=== PATIENT | male | born 1980 | race African-American/Black ===

== ENCOUNTER 2020-02-25 22:16 | Emergency (ER) | payer SELFPAY ==
[~2020-02-25] VITALS: Ht 172.7 cm; Wt 140.4 kg
[2020-02-25 22:58] LABS: BASO # 0.1 x10^3/uL (0.0-0.2); BASO % 1 % (0-3); EOS # 0.1 x10^3/uL (0.0-0.7); EOS % 1 % (0-3); HEMOGLOBIN 15.1 g/dL (13.0-17.5); LYMPH # 1.5 x10^3/uL (1.0-4.8); LYMPH % 18 % (24-48); MEAN CORPUSCULAR HEMOGLOBIN 26 pg (25-35); MEAN CORPUSCULAR HGB CONC 33 g/dL (31-37); MEAN CORPUSCULAR VOLUME 79 fL (79-100); MONO # 0.6 x10^3/uL (0.0-1.1); MONO % 7 % (0-9); NEUT # 6.2 x10^3/uL (1.8-7.7); NEUT % 73 % (31-73); PLATELET COUNT 245 x10^3/uL (140-400); RED BLOOD COUNT 5.83 x10^6/uL (4.30-5.70); RED CELL DISTRIBUTION WIDTH 17.2 % (11.5-14.5); WHITE BLOOD COUNT 8.5 x10^3/uL (4.0-11.0)
--- NOTE | 2020-02-25 23:05 | ED.ADGEN ---
General Adult EDM: Chief Complaint: CHEST PAIN HPI: HPI: Patient is a 39-year-old male who presents to the emergency room complaining of sudden onset substernal chest pressure with shortness of breath. Patient states that he was playing video games and suddenly had onset of pain that has progressively gotten worse. He states the pain is mildly better than it was prior to coming but he continues to have pain. He states that it feels like he cannot get a deep breath. Prior to this he was feeling normal. He has not had any recent cough, URI symptoms, fever, chills, sweats, abdominal pain, nausea, vomiting, diarrhea. There is no radiation of pain. He does not use any kind of substances. Review of Systems: Review of Systems: Complete ROS is negative unless otherwise documented in HPI Current Medications: Current Medications Medications (Trade) Dose Ordered Sig/[place] Start Time Stop Time Status Last Admin Dose Admin Info (CONTRAST GIVEN -- Rx MONITORING) 1 each PRN DAILY PRN 02/25/20 23:55 02/27/20 23:54 Iohexol (Omnipaque 350 Mg/ml) 100 ml 1X ONCE 02/25/20 23:55 02/25/20 23:56 DC 02/25/20 23:59 100 ML Sodium Chloride 1,000 ml @ 1,000 mls/hr 1X ONCE 02/26/20 01:00 02/26/20 01:59 02/26/20 01:00 1,000 MLS/HR Allergies: Allergies: Allergies Coded Allergies Type Severity Reaction Last Updated Verified No Known Drug Allergies 02/25/20 No Physical Exam: PE: General: Awake, alert, NAD. Well Nourished, well hydrated. Cooperative HEENT: Atraumatic, EOMI, PERRL, airway patent, moist oral mucosa Neck: Supple, trachea midline Respiratory: CTA bilaterally, normal effort, no wheezing/crackles CV: Tachycardic, no murmur, cap refill <2 GI: Soft, nondistended, nontender, no masses MSK: No obvious deformities Skin: Warm, dry, intact Neuro: A&O x3, speech NL, sensory and motor grossly intact, no focal deficits Psych: Normal affect, normal mood, not suicidal or homicidal Current Patient Data: Labs: Laboratory Tests Test 02/25/20 22:47 White Blood Count 8.5 x10^3/uL (4.0-11.0) Red Blood Count 5.83 x10^6/uL (4.30-5.70) H Hemoglobin 15.1 g/dL (13.0-17.5) Hematocrit 46.0 % (39.0-53.0) Mean Corpuscular Volume 79 fL (79-100) Mean Corpuscular Hemoglobin 26 pg (25-35) Mean Corpuscular Hemoglobin Concent 33 g/dL (31-37) Red Cell Distribution Width 17.2 % (11.5-14.5) H Platelet Count 245 x10^3/uL (140-400) Neutrophils (%) (Auto) 73 % (31-73) Lymphocytes (%) (Auto) 18 % (24-48) L Monocytes (%) (Auto) 7 % (0-9) Eosinophils (%) (Auto) 1 % (0-3) Basophils (%) (Auto) 1 % (0-3) Neutrophils # (Auto) 6.2 x10^3/uL (1.8-7.7) Lymphocytes # (Auto) 1.5 x10^3/uL (1.0-4.8) Monocytes # (Auto) 0.6 x10^3/uL (0.0-1.1) Eosinophils # (Auto) 0.1 x10^3/uL (0.0-0.7) Basophils # (Auto) 0.1 x10^3/uL (0.0-0.2) D-Dimer (Winnie) 0.51 ug/mlFEU (0.00-0.50) H Sodium Level 139 mmol/L (136-145) Potassium Level 4.1 mmol/L (3.5-5.1) Chloride Level 102 mmol/L (98-107) Carbon Dioxide Level 23 mmol/L (21-32) Anion Gap 14 (6-14) Blood Urea Nitrogen 15 mg/dL (8-26) Creatinine 1.2 mg/dL (0.7-1.3) Estimated GFR (Cockcroft-Gault) 66.7 BUN/Creatinine Ratio 13 (6-20) Glucose Level 152 mg/dL (70-99) H Calcium Level 8.5 mg/dL (8.5-10.1) Total Bilirubin 0.2 mg/dL (0.2-1.0) Aspartate Amino Transferase (AST) 31 U/L (15-37) Alanine Aminotransferase (ALT) 46 U/L (16-63) Alkaline Phosphatase 98 U/L (46-116) Lactate Dehydrogenase 243 U/L (85-227) H Creatine Kinase 213 U/L (39-308) Troponin I Quantitative < 0.017 ng/mL (0.000-0.055) C-Reactive Protein, Quantitative 11.3 mg/L (0-3.3) H KI-Pnu-B-Type Natriuretic Peptide 60 pg/mL (0-124) Total Protein 7.7 g/dL (6.4-8.2) Albumin 3.5 g/dL (3.4-5.0) Albumin/Globulin Ratio 0.8 (1.0-1.7) L Laboratory Tests 02/25/20 22:47 Laboratory Tests 02/25/20 22:47 Vital Signs: Vital Signs Date Time Temp Pulse Resp B/P (MAP) Pulse Ox O2 Delivery O2 Flow Rate FiO2 02/25/20 23:45 130 152/79 (103) 95 Room Air 02/25/20 22:16 98.6 22 98.6 EKG: EKG: [] Heart Score: Risk Factors: Risk Factors: DM, Current or recent (<one month) smoker, HTN, HLP, family histo ry of CAD, obesity. Risk Scores: Score 0 - 3: 2.5% MACE over next 6 weeks - Discharge Home Score 4 - 6: 20.3% MACE over next 6 weeks - Admit for Clinical Observation Score 7 - 10: 72.7% MACE over next 6 weeks - Early Invasive Strategies Radiology/Procedures: Radiology/Procedures: [] Course & Med Decision Making: Course & Med Decision Making Pertinent Labs and Imaging studies reviewed. (See chart for details) Patient is a 39-year-old male who presents to the emergency room complaining of sudden onset chest pain and shortness of breath. Patient is tachycardic upon evaluation. This raises concern for possible pulmonary embolism. Shortness of breath and chest pain work-up was ordered including CBC, CMP, troponin, D-dimer, EKG, chest x-ray. Work-up does show an elevated D-dimer. CT angio was done and was suboptimal. Patient is feeling better. He is not hypoxic. I have discussed his tachycardia with him and he states that this is not unusual. I discussed with him the options of being admitted to be evaluated for a possible VQ scan and pulmonology consult versus being discharged home with strict return precautions that if his chest pain or shortness of breath should recur he will return to the emergency room. We have discussed the suboptimal study. Patient would like to go home and come back if symptoms return. Patient's test results and vitals while in the ED were fully reviewed and discussed with the patient. Patient is stable and at this time does not need admission to the hospital. We have discussed strict return precautions and the importance of following up with their Primary Care Physician. Patient stated understanding and was given an opportunity to ask any questions. Patient is in agreement with plan. Alyce Disclaimer: Alyce Disclaimer: This electronic medical record was generated, in whole or in part, using a voice recognition dictation system. Departure Departure Impression: Primary Impression: Chest pain Additional Impression: Tachycardia Disposition: 01 DC HOME SELF CARE/HOMELESS Condition: STABLE Patient Instructions: Chest Pain (Nonspecific) Problem Qualifiers TERRY YO MD Feb 25, 2020 23:05
[2020-02-25 23:07] LABS: CALCIUM 8.5 mg/dL (8.5-10.1); CREATININE 1.2 mg/dL (0.7-1.3); GFR 66.7; POTASSIUM 4.1 mmol/L (3.5-5.1)
[2020-02-25 23:13] LABS: ALBUMIN 3.5 g/dL (3.4-5.0); ALBUMIN/GLOBULIN RATIO 0.8 (1.0-1.7); C-REACTIVE PROTEIN 11.3 mg/L (0-3.3); TOTAL BILIRUBIN 0.2 mg/dL (0.2-1.0); TOTAL PROTEIN 7.7 g/dL (6.4-8.2)
[2020-02-25] MEDS ORDERED: IOHEXOL 350 MG/ML 100 ML VIAL. IV ONE (23:55)
[2020-02-25] MEDS ORDERED: CONTRAST GIVEN. MC PRN (23:55)
--- NOTE | 2020-02-26 00:33 | RAD ---
EXAM: AP View of the chest DATE: 02/25/2020 10:34 PM INDICATION: Reason: cough, covid? / Spl. Instructions: / History: COMPARISON: No Prior FINDINGS: The heart is not enlarged. Mediastinal and hilar contours are normal. No focal parenchymal airspace opacity. No pleural effusion or pneumothorax. IMPRESSION: 1. No radiographic evidence for acute cardiopulmonary process. Electronically signed by: Bertrand Barron MD (02/26/2020 12:27 AM) TREV
--- NOTE | 2020-02-26 00:40 | RAD ---
EXAM: CT chest with contrast - pulmonary embolus protocol CLINICAL HISTORY: chest pain, sob, tachycardia COMPARISON: None. TECHNIQUE: CT of the chest following the administration of intravenous contrast during the pulmonary arterial phase. Axial, coronal and sagittal reformatted images were generated including MIP images. ---PQRS compliance statement - One or more of the following individualized dose reduction techniques were utilized for this study: 1. Automated exposure control 2. Adjustment of the mA and/or kV according to patient size 3. Use of iterative reconstruction technique--- FINDINGS: CHEST: Diagnostic quality: Suboptimal. Pulmonary emboli: No obvious large central pulmonary embolus is seen. The pulmonary artery branches are not adequately assessed. Right heart strain: None Pulmonary arteries: Normal in caliber. Heart is not enlarged. No pericardial effusion. No pleural effusion or pneumothorax. A few mildly prominent mediastinal and hilar lymph nodes are seen, likely reactive. No axillary lymph adenopathy. No lobar consolidation. Focal groundglass opacities are seen in the anterolateral right middle lobe, left infrahilar region as well as dependently in the left lower lobe and right lower lobe. 4 mm left upper lobe lung nodule (series 3 image 52) is seen. 4 mm left upper lobe/lingular lung nodule (series 3 image 79) is seen. 4 mm peripheral right upper lobe lung nodule (series 3 image 76). Additional sm aller bilateral lung nodules are seen. Visualized Upper abdomen: Hepatic hypoattenuation likely fatty liver. Region of focal fatty sparing along the gallbladder fossa. Bones: No aggressive osseous lesion is seen. IMPRESSION: 1. Evaluation for pulmonary embolus is markedly limited. No obvious large central pulmonary embolus is seen. Pulmonary artery branches are not well assessed. 2. Vague groundglass opacities bilaterally, possibly atelectasis although developing atypical infect ious or inflammatory process is not excluded. Follow-up CT to resolution is recommended. CT can be pe rformed in 3-6 months. 3. Multiple lung nodules measure up to 4 mm. Per Fleischner Society guidelines for incidentally foun d solid nodules measuring less than 6 mm, no follow-up is necessary if patient is considered at low r isk for lung cancer. If patient is considered to be at high risk, such as with history of smoking, en CT follow-up in about 12 months can be considered. Electronically signed by: Bertrand Barron MD (02/26/2020 12:35 AM) TREV
[2020-02-26] MEDS ORDERED: IV NORMAL SALINE 1000ML BAG 1,000 ML IV ONE (01:00)
[2020-02-26 01:15] VITALS: BP 148/86
--- NOTE | 2020-02-26 11:50 | EKG ---
[facility] [address] [place] [address] Test Date: 2020-02-25 Test Time: 22:27:14 Pat Name: ROSALES PORTER Department: Room: Gender: M Carriage Dogger: : 1980 Requested By: TERRY YO Order Number: [id number] Reading MD: Measurements Intervals [place] Rate: 126 P: 103 MN: 140 QRS: -10 QRSD: 78 T: 26 QT: 300 QTc: 435 Interpretive Statements SINUS TACHYCARDIA LEFTWARD AXIS RVH WITH REPOLARIZATION ABNORMALITY QRS(T) CONTOUR ABNORMALITY CONSISTENT WITH ANTEROSEPTAL INFARCT AGE UNDETERMINED ABNORMAL ECG RI6.01 No previous ECG available for comparison
== END 2020-02-26 01:29 | disposition home or self-care (01) ==
LOC: ER 22:16
DX: R07.2 Precordial pain (principal); R00.0 Tachycardia, unspecified; R06.02 Shortness of breath
CPT/HCPCS: 36415; 71045; 71275; 80053; 82550; 83615; 83880; 84484; 85025; 85379; 86140; 93005; 96360; 99285; J7030; Q9967

== ENCOUNTER 2020-03-11 02:12 | Observation (INO) | payer SELFPAY ==
[~2020-03-11] VITALS: Ht 172.7 cm; Wt 142.5 kg
[2020-03-11] MEDS ORDERED: ASPIRIN CHEWABLE 81 MG TABLET. PO ONE (02:45)
[2020-03-11 02:53] LABS: BASO % 1 % (0-3); EOS # 0.2 x10^3/uL (0.0-0.7); EOS % 3 % (0-3); HEMATOCRIT 44.1 % (39.0-53.0); HEMOGLOBIN 14.5 g/dL (13.0-17.5); LYMPH # 1.8 x10^3/uL (1.0-4.8); LYMPH % 28 % (24-48); MEAN CORPUSCULAR HEMOGLOBIN 26 pg (25-35); MEAN CORPUSCULAR HGB CONC 33 g/dL (31-37); MEAN CORPUSCULAR VOLUME 79 fL (79-100); MONO # 0.8 x10^3/uL (0.0-1.1); MONO % 13 % (0-9); NEUT # 3.7 x10^3/uL (1.8-7.7); NEUT % 57 % (31-73); PLATELET COUNT 212 x10^3/uL (140-400); RED BLOOD COUNT 5.57 x10^6/uL (4.30-5.70); RED CELL DISTRIBUTION WIDTH 17.4 % (11.5-14.5); WHITE BLOOD COUNT 6.5 x10^3/uL (4.0-11.0)
[2020-03-11 03:02] LABS: CALCIUM 8.7 mg/dL (8.5-10.1); CREATININE 0.9 mg/dL (0.7-1.3); GFR 112.5; POTASSIUM 4.1 mmol/L (3.5-5.1)
[2020-03-11 03:08] LABS: ALBUMIN 3.4 g/dL (3.4-5.0); ALBUMIN/GLOBULIN RATIO 0.8 (1.0-1.7); MAGNESIUM 2.1 mg/dL (1.8-2.4); TOTAL BILIRUBIN 0.2 mg/dL (0.2-1.0); TOTAL PROTEIN 7.6 g/dL (6.4-8.2)
--- NOTE | 2020-03-11 03:28 | PHYS DOC ---
Past Medical History Past Medical History: Hypertension, Other Additional Past Medical Histor: SLEEP APNEA, "LUMP ON GROIN POSSIBLY CA" Past Surgical History: No Surgical History Smoking Status: Never Smoker Alcohol Use: None Adult General Chief Complaint Chief Complaint: CHEST PAIN-CARDIAC NATURE HPI HPI Patient is a 39 year old with a past medical history of hypertension not currently on medication presenting the emergency department complaining of onset of chest pain. Patient states he has been having intermittent left anterior chest pain over the last 2 weeks. States that over the last 4 hours has developed worsening sensation of left anterior chest pain but also noted tingling in his hands and feet. Denies any dizziness or lightheadedness. Denies any cough, fever, chills. Notes that he has a family history of a sister who had a myocardial infarction at the age of 40 Review of Systems Review of Systems Constitutional: Denies fever or chills [] Eyes: Denies change in visual acuity, redness, or eye pain [] HENT: Denies nasal congestion or sore throat [] Respiratory: Denies cough or shortness of breath [] Cardiovascular: No additional information not addressed in HPI [] GI: Denies abdominal pain, nausea, vomiting, bloody stools or diarrhea [] : Denies dysuria or hematuria [] Musculoskeletal: Denies back pain or joint pain [] Integument: Denies rash or skin lesions [] Neurologic: Denies headache, focal weakness or sensory changes [] Endocrine: Denies polyuria or polydipsia [] All other systems were reviewed and found to be within normal limits, except as documented in this note. Current Medications Current Medications Current Medications Medications (Trade) Dose Ordered Sig/[facility] Start Time Stop Time Status Last Admin Dose Admin Aspirin (Aspirin Chewable) 324 mg 1X ONCE 03/11/20 02:45 03/11/20 02:46 DC 03/11/20 03:09 324 MG Allergies Allergies Allergies Coded Allergies Type Severity Reaction Last Updated Verified No Known Drug Allergies 02/25/20 No Physical Exam Physical Exam Constitutional: Well developed, well nourished, no acute distress, non-toxic appearance. [] HENT: Normocephalic, atraumatic, bilateral external ears normal, oropharynx moist, no oral exudates, nose normal. [] Eyes: PERRLA, EOMI, conjunctiva normal, no discharge. [] Neck: Normal range of motion, no tenderness, supple, no stridor. [] Cardiovascular:Heart rate regular rhythm, no murmur [] Lungs & Thorax: Bilateral breath sounds clear to auscultation [] Abdomen: Bowel sounds normal, soft, no tenderness, no masses, no pulsatile masses. [] Skin: Warm, dry, no erythema, no rash. [] Back: No tenderness, no CVA tenderness. [] Extremities: No tenderness, no cyanosis, no clubbing, ROM intact, no edema. [] Neurologic: Alert and oriented X 3, normal motor function, normal sensory function, no focal deficits noted. [] Psychologic: Affect normal, judgement normal, mood normal. [] Current Patient Data Lab Values Laboratory Tests Test 03/11/20 02:35 White Blood Count 6.5 x10^3/uL (4.0-11.0) Red Blood Count 5.57 x10^6/uL (4.30-5.70) Hemoglobin 14.5 g/dL (13.0-17.5) Hematocrit 44.1 % (39.0-53.0) Mean Corpuscular Volume 79 fL (79-100) Mean Corpuscular Hemoglobin 26 pg (25-35) Mean Corpuscular Hemoglobin Concent 33 g/dL (31-37) Red Cell Distribution Width 17.4 % (11.5-14.5) H Platelet Count 212 x10^3/uL (140-400) Neutrophils (%) (Auto) 57 % (31-73) Lymphocytes (%) (Auto) 28 % (24-48) Monocytes (%) (Auto) 13 % (0-9) H Eosinophils (%) (Auto) 3 % (0-3) Basophils (%) (Auto) 1 % (0-3) Neutrophils # (Auto) 3.7 x10^3/uL (1.8-7.7) Lymphocytes # (Auto) 1.8 x10^3/uL (1.0-4.8) Monocytes # (Auto) 0.8 x10^3/uL (0.0-1.1) Eosinophils # (Auto) 0.2 x10^3/uL (0.0-0.7) Basophils # (Auto) 0.0 x10^3/uL (0.0-0.2) Sodium Level 140 mmol/L (136-145) Potassium Level 4.1 mmol/L (3.5-5.1) Chloride Level 103 mmol/L (98-107) Carbon Dioxide Level 29 mmol/L (21-32) Anion Gap 8 (6-14) Blood Urea Nitrogen 9 mg/dL (8-26) Creatinine 0.9 mg/dL (0.7-1.3) Estimated GFR (Cockcroft-Gault) 112.5 BUN/Creatinine Ratio 10 (6-20) Glucose Level 88 mg/dL (70-99) Calcium Level 8.7 mg/dL (8.5-10.1) Magnesium Level 2.1 mg/dL (1.8-2.4) Total Bilirubin 0.2 mg/dL (0.2-1.0) Aspartate Amino Transferase (AST) 20 U/L (15-37) Alanine Aminotransferase (ALT) 37 U/L (16-63) Alkaline Phosphatase 90 U/L (46-116) Troponin I Quantitative < 0.017 ng/mL (0.000-0.055) Total Protein 7.6 g/dL (6.4-8.2) Albumin 3.4 g/dL (3.4-5.0) Albumin/Globulin Ratio 0.8 (1.0-1.7) L Laboratory Tests 03/11/20 02:35 Laboratory Tests 03/11/20 02:35 EKG EKG [] Radiology/Procedures Radiology/Procedures [] Course & Med Decision Making Course & Med Decision Making Pertinent Labs and Imaging studies reviewed. (See chart for details) 39M presenting with new onset of left anterior chest pain in setting of hypertension which does raise concern for hypertensive emergency. Will obtain an ACS work-up and monitor for any changes. LAbs unremarkable. Because of family history and comorbidities will keep for observation. Dragon Disclaimer Dragon Disclaimer This electronic medical record was generated, in whole or in part, using a voice recognition dictation system. Departure Departure Impression: Primary Impression: Chest pain Disposition: 09 ADMITTED INPT THIS HOSP Condition: STABLE Referrals: NO PCP (PCP) RAUDEL ARIZMENDI MD Mar 11, 2020 03:28
--- NOTE | 2020-03-11 03:33 | RAD ---
XR CHEST 1V Clinical Indication: Reason: chest pain / Comparison: AP chest, February 25, 2020. Findings: The cardiomediastinal silhouette is normal. Lungs are clear. There is no pneumothorax. No pleural eff usion is appreciated. No acute bone abnormality. IMPRESSION: No acute cardiopulmonary process. Electronically signed by: Jus Winter MD (03/11/2020 3:31 AM) [facility]
[2020-03-11] MEDS ORDERED: ONDANSETRON PF 4 MG/2 ML VIAL. IV PRN (04:45)
--- NOTE | 2020-03-11 08:03 | PDOC1 ---
History and Physical Date of Admission Date of Admission DATE: 03/11/20 TIME: 08:00 Identification/Chief Complaint Chief Complaint Chest pain Source Source: Patient History of Present Illness History of Present Illness Patient is a 39-year-old obese -[place] male presents to the ER for evaluation of intermittent chest pain x1 week. He reports associated l ightheadedness and bilateral upper extremity numbness. He was seen in [facility] ER on 02/25/2020 for similar symptoms. He was given the option to be admitted for cardiac evaluation, per patient chose to be discharged instead. He returned to the ER last night due to recurrence of symptoms. Chest. EKG unremarkable for acute process. Due to significant risk factors of morbid obesity and family history of coronary artery disease, will admit patient for further medical management. Past Medical History Past Medical History GERD, obesity, hypertension Past Surgical History Past Surgical History: No pertinent history Family History Family History: Coronary Artery Disease Social History Smoke: No ALCOHOL: none Drugs: Marijuana Current Problem List Problem List Problems Medical Problems: (1) Chest pain Status: Acute Current Medications Current Medications Current Medications Aspirin (Aspirin Chewable) 324 mg 1X ONCE PO Last administered on 03/11/20at 03:09; Start 03/11/20 at 02:45; Stop 03/11/20 at 02:46; Status DC Ondansetron HCl (Zofran) 4 mg PRN Q8HRS PRN IV NAUSEA/VOMITING; Start 03/11/20 at 04:45; Stop 03/12/20 at 04:44 Allergies Allergies: Coded Allergies: No Known Drug Allergies (Unverified , 02/25/20) ROS Review of System GENERAL: No history of weight change, weakness or fevers. SKIN: No bruising, hair changes or rashes. EYES: No blurred, double or loss of vision. NOSE AND THROAT: No history of nosebleeds, hoarseness or sore throat. HEART: Denies chest pain, denies palpitations. LUNGS: Denies cough, hemoptysis, wheezing or shortness of breath. GASTROINTESTINAL: Denies nausea, vomiting, abdominal pain. GENITOURINARY: Denies dysuria, frequency, urgency, hematuria. NEUROLOGIC: Bilateral hand numbness. Denies tremor or weakness. PSYCHIATRIC: Denies anxiety, denies depression. ENDOCRINE: No history of heat or cold intolerance, polyuria or polydipsia. EXTREMITIES: Denies muscle weakness, joint pain, pain on walking or stiffness. Physical Exam Physical Exam General: Alert, Oriented X3, Cooperative, No acute distress. Morbidly obese. HEENT: PERRLA, EOMI Lungs: Decreased breath sounds. Normal air movement Heart: RRR, no murmurs Cardiovascular: S1, S2 Abdomen: Normal bowel sounds, Soft, No tenderness Extremities: No clubbing, No cyanosis Skin: No rashes, No significant lesion Neuro: Normal speech, Normal tone, Sensation intact Psych/Mental Status: Mental status NL, Mood NL Vitals Vitals Vital Signs Date Time Temp Pulse Resp B/P (MAP) Pulse Ox O2 Delivery O2 Flow Rate FiO2 03/11/20 06:17 76 18 173/92 (119) 97 Room Air 03/11/20 02:15 98.1 98.1 Labs Labs Laboratory Tests Test 03/11/20 02:35 03/11/20 06:38 White Blood Count 6.5 x10^3/uL (4.0-11.0) Red Blood Count 5.57 x10^6/uL (4.30-5.70) Hemoglobin 14.5 g/dL (13.0-17.5) Hematocrit 44.1 % (39.0-53.0) Mean Corpuscular Volume 79 fL (79-100) Mean Corpuscular Hemoglobin 26 pg (25-35) Mean Corpuscular Hemoglobin Concent 33 g/dL (31-37) Red Cell Distribution Width 17.4 % (11.5-14.5) Platelet Count 212 x10^3/uL (140-400) Neutrophils (%) (Auto) 57 % (31-73) Lymphocytes (%) (Auto) 28 % (24-48) Monocytes (%) (Auto) 13 % (0-9) Eosinophils (%) (Auto) 3 % (0-3) Basophils (%) (Auto) 1 % (0-3) Neutrophils # (Auto) 3.7 x10^3/uL (1.8-7.7) Lymphocytes # (Auto) 1.8 x10^3/uL (1.0-4.8) Monocytes # (Auto) 0.8 x10^3/uL (0.0-1.1) Eosinophils # (Auto) 0.2 x10^3/uL (0.0-0.7) Basophils # (Auto) 0.0 x10^3/uL (0.0-0.2) Sodium Level 140 mmol/L (136-145) Potassium Level 4.1 mmol/L (3.5-5.1) Chloride Level 103 mmol/L (98-107) Carbon Dioxide Level 29 mmol/L (21-32) Anion Gap 8 (6-14) Blood Urea Nitrogen 9 mg/dL (8-26) Creatinine 0.9 mg/dL (0.7-1.3) Estimated GFR (Cockcroft-Gault) 112.5 BUN/Creatinine Ratio 10 (6-20) Glucose Level 88 mg/dL (70-99) Calcium Level 8.7 mg/dL (8.5-10.1) Magnesium Level 2.1 mg/dL (1.8-2.4) Total Bilirubin 0.2 mg/dL (0.2-1.0) Aspartate Amino Transf (AST/SGOT) 20 U/L (15-37) Alanine Aminotransferase (ALT/SGPT) 37 U/L (16-63) Alkaline Phosphatase 90 U/L (46-116) Troponin I Quantitative < 0.017 ng/mL (0.000-0.055) < 0.017 ng/mL (0.000-0.055) Total Protein 7.6 g/dL (6.4-8.2) Albumin 3.4 g/dL (3.4-5.0) Albumin/Globulin Ratio 0.8 (1.0-1.7) Laboratory Tests Test 03/11/20 02:35 03/11/20 06:38 White Blood Count 6.5 x10^3/uL (4.0-11.0) Red Blood Count 5.57 x10^6/uL (4.30-5.70) Hemoglobin 14.5 g/dL (13.0-17.5) Hematocrit 44.1 % (39.0-53.0) Mean Corpuscular Volume 79 fL (79-100) Mean Corpuscular Hemoglobin 26 pg (25-35) Mean Corpuscular Hemoglobin Concent 33 g/dL (31-37) Red Cell Distribution Width 17.4 % (11.5-14.5) Platelet Count 212 x10^3/uL (140-400) Neutrophils (%) (Auto) 57 % (31-73) Lymphocytes (%) (Auto) 28 % (24-48) Monocytes (%) (Auto) 13 % (0-9) Eosinophils (%) (Auto) 3 % (0-3) Basophils (%) (Auto) 1 % (0-3) Neutrophils # (Auto) 3.7 x10^3/uL (1.8-7.7) Lymphocytes # (Auto) 1.8 x10^3/uL (1.0-4.8) Monocytes # (Auto) 0.8 x10^3/uL (0.0-1.1) Eosinophils # (Auto) 0.2 x10^3/uL (0.0-0.7) Basophils # (Auto) 0.0 x10^3/uL (0.0-0.2) Sodium Level 140 mmol/L (136-145) Potassium Level 4.1 mmol/L (3.5-5.1) Chloride Level 103 mmol/L (98-107) Carbon Dioxide Level 29 mmol/L (21-32) Anion Gap 8 (6-14) Blood Urea Nitrogen 9 mg/dL (8-26) Creatinine 0.9 mg/dL (0.7-1.3) Estimated GFR (Cockcroft-Gault) 112.5 BUN/Creatinine Ratio 10 (6-20) Glucose Level 88 mg/dL (70-99) Calcium Level 8.7 mg/dL (8.5-10.1) Magnesium Level 2.1 mg/dL (1.8-2.4) Total Bilirubin 0.2 mg/dL (0.2-1.0) Aspartate Amino Transf (AST/SGOT) 20 U/L (15-37) Alanine Aminotransferase (ALT/SGPT) 37 U/L (16-63) Alkaline Phosphatase 90 U/L (46-116) Troponin I Quantitative < 0.017 ng/mL (0.000-0.055) < 0.017 ng/mL (0.000-0.055) Total Protein 7.6 g/dL (6.4-8.2) Albumin 3.4 g/dL (3.4-5.0) Albumin/Globulin Ratio 0.8 (1.0-1.7) Images Images XR CHEST 1V Clinical Indication: Reason: chest pain / Comparison: AP chest, February 25, 2020. Findings: The cardiomediastinal silhouette is normal. Lungs are clear. There is no pneumothorax. No pleural effusion is appreciated. No acute bone abnormality. IMPRESSION: No acute cardiopulmonary process. VTE Prophylaxis Ordered VTE Prophylaxis Devices: Yes VTE Pharmacological Prophylaxi: No Assessment/Plan Assessment/Plan Chest pain Hypertension Obesity Plan: Initial troponins undetectable x2. Consultation with cardiology. Will initiate antihypertensives treatment We will evaluate with echocardiogram Morphine, nitroglycerin as needed Lipid panel pending FEN - Cardiac diet PPX - SCDs FULL CODE Dispo - inpatient for above Justifications for Admission Other Justification SONNY RODRÍGUEZ MD Mar 11, 2020 08:03
[2020-03-11 09:11] LABS: CHOLESTEROL/HDL RATIO 4.3
[2020-03-11] MEDS: LOSARTAN POTASSIUM 25 MG TABLET. PO SCH (10:26)
[2020-03-11] MEDS: HEPARIN for IV BOLUS 10,000 UNIT/10 ML VIAL. IV PRN ×2 (13:03→20:26)
[2020-03-11] MEDS: HEPARIN 25,000UTS/250ML PREMIX 250 ML IV PRN (13:04)
[2020-03-11 14:00] VITALS: BP 145/83
--- NOTE | 2020-03-11 15:19 | PDOC2 ---
CONSULT Date of Consult Date of Consult DATE: 03/11/20 TIME: 15:14 Reason for Consult Reason for Consult: Recurrent chest pain Referring Physician Referring Physician: Dr. Hamilton Identification/Chief Complaint Chief Complaint Chest pain Source Source: Chart review, Patient History of Present Illness Reason for Visit: The patient is a 39-year-old male who was evaluated in the emergency room for episodes of chest pain. Patient states his pain has been present on and off for approximately 2 weeks. It significantly increased 4 to 6 hours prior to his admission from the emergency room. Of note the patient also was seen in the emergency room on 02/26/2020 for similar symptoms. A suboptimal CTA scan showed no large pulmonary emboli. The patient was discharged with a plan for outpatient follow-up. On this admission the patient is feeling somewhat better but still has pain. His EKG shows no acute ischemic changes. Troponin has been normal x3. Chest x-ray shows no acute process. Of note the patient has a history of a sister passing away at age 40 from a heart attack by his report. Lab testing has shown a total cholesterol 185, LDL of 132 and HDL of 43. Past Medical History Cardiovascular: HTN, Hyperlipidemia Past Surgical History Past Surgical History: No pertinent history Family History Family History: Coronary Artery Disease, Other (The patient reports one of his sisters at age 40 from a heart attack) Social History No ALCOHOL: none Drugs: Marijuana Current Problem List Problem List Problems Medical Problems: (1) Chest pain Status: Acute Current Medications Current Medications Current Medications Aspirin (Aspirin Chewable) 324 mg 1X ONCE PO Last administered on 03/11/20at 03:09; Start 03/11/20 at 02:45; Stop 03/11/20 at 02:46; Status DC Ondansetron HCl (Zofran) 4 mg PRN Q8HRS PRN IV NAUSEA/VOMITING; Start 03/11/20 at 04:45; Stop 03/12/20 at 04:44 Losartan Potassium (Cozaar) 25 mg DAILY PO Last administered on 03/11/20at 10:26; Start 03/11/20 at 09:00 Heparin Sodium/ Dextrose 250 ml @ 10 mls/hr CONT PRN IV PER PROTOCOL Last administered on 03/11/20at 13:04; Start 03/11/20 at 10:45 Heparin Sodium (Porcine) (Heparin Sodium) 3,600 unit PRN Q6HRS PRN IV FOR UFH LEVEL LESS THAN 0.2 Last administered on 03/11/20at 13:03; Start 03/11/20 at 10:45 Atorvastatin Calcium (Lipitor) 20 mg QHS PO ; Start 03/11/20 at 21:00 Allergies Allergies: Coded Allergies: No Known Drug Allergies (Unverified , 02/25/20) ROS Cardiovascular: yes Chest Pain Physical Exam General: mild distress HEENT: Atraumatic Lungs: Clear to auscultation Heart: Regular rate Abdomen: Normal bowel sounds Vitals VITALS Vital Signs Date Time Temp Pulse Resp B/P (MAP) Pulse Ox O2 Delivery O2 Flow Rate FiO2 03/11/20 14:00 98.1 83 18 145/83 (103) 98 Room Air 98.1 Labs Labs Laboratory Tests Test 03/11/20 02:25 03/11/20 02:35 03/11/20 06:38 03/11/20 10:30 Triglycerides Level 50 mg/dL (0-150) Cholesterol Level 185 mg/dL (0-200) LDL Cholesterol, Calculated 132 mg/dL (0-100) VLDL Cholesterol, Calculated 10 mg/dL (0-40) Non-HDL Cholesterol Calculated 142 mg/dL (0-129) HDL Cholesterol 43 mg/dL (40-60) Cholesterol/HDL Ratio 4.3 White Blood Count 6.5 x10^3/uL (4.0-11.0) Red Blood Count 5.57 x10^6/uL (4.30-5.70) Hemoglobin 14.5 g/dL (13.0-17.5) Hematocrit 44.1 % (39.0-53.0) Mean Corpuscular Volume 79 fL (79-100) Mean Corpuscular Hemoglobin 26 pg (25-35) Mean Corpuscular Hemoglobin Concent 33 g/dL (31-37) Red Cell Distribution Width 17.4 % (11.5-14.5) Platelet Count 212 x10^3/uL (140-400) Neutrophils (%) (Auto) 57 % (31-73) Lymphocytes (%) (Auto) 28 % (24-48) Monocytes (%) (Auto) 13 % (0-9) Eosinophils (%) (Auto) 3 % (0-3) Basophils (%) (Auto) 1 % (0-3) Neutrophils # (Auto) 3.7 x10^3/uL (1.8-7.7) Lymphocytes # (Auto) 1.8 x10^3/uL (1.0-4.8) Monocytes # (Auto) 0.8 x10^3/uL (0.0-1.1) Eosinophils # (Auto) 0.2 x10^3/uL (0.0-0.7) Basophils # (Auto) 0.0 x10^3/uL (0.0-0.2) Sodium Level 140 mmol/L (136-145) Potassium Level 4.1 mmol/L (3.5-5.1) Chloride Level 103 mmol/L (98-107) Carbon Dioxide Level 29 mmol/L (21-32) Anion Gap 8 (6-14) Blood Urea Nitrogen 9 mg/dL (8-26) Creatinine 0.9 mg/dL (0.7-1.3) Estimated GFR (Cockcroft-Gault) 112.5 BUN/Creatinine Ratio 10 (6-20) Glucose Level 88 mg/dL (70-99) Calcium Level 8.7 mg/dL (8.5-10.1) Magnesium Level 2.1 mg/dL (1.8-2.4) Total Bilirubin 0.2 mg/dL (0.2-1.0) Aspartate Amino Transf (AST/SGOT) 20 U/L (15-37) Alanine Aminotransferase (ALT/SGPT) 37 U/L (16-63) Alkaline Phosphatase 90 U/L (46-116) Troponin I Quantitative < 0.017 ng/mL (0.000-0.055) < 0.017 ng/mL (0.000-0.055) < 0.017 ng/mL (0.000-0.055) Total Protein 7.6 g/dL (6.4-8.2) Albumin 3.4 g/dL (3.4-5.0) Albumin/Globulin Ratio 0.8 (1.0-1.7) Laboratory Tests Test 03/11/20 02:25 03/11/20 02:35 03/11/20 06:38 03/11/20 10:30 Triglycerides Level 50 mg/dL (0-150) Cholesterol Level 185 mg/dL (0-200) LDL Cholesterol, Calculated 132 mg/dL (0-100) VLDL Cholesterol, Calculated 10 mg/dL (0-40) Non-HDL Cholesterol Calculated 142 mg/dL (0-129) HDL Cholesterol 43 mg/dL (40-60) Cholesterol/HDL Ratio 4.3 White Blood Count 6.5 x10^3/uL (4.0-11.0) Red Blood Count 5.57 x10^6/uL (4.30-5.70) Hemoglobin 14.5 g/dL (13.0-17.5) Hematocrit 44.1 % (39.0-53.0) Mean Corpuscular Volume 79 fL (79-100) Mean Corpuscular Hemoglobin 26 pg (25-35) Mean Corpuscular Hemoglobin Concent 33 g/dL (31-37) Red Cell Distribution Width 17.4 % (11.5-14.5) Platelet Count 212 x10^3/uL (140-400) Neutrophils (%) (Auto) 57 % (31-73) Lymphocytes (%) (Auto) 28 % (24-48) Monocytes (%) (Auto) 13 % (0-9) Eosinophils (%) (Auto) 3 % (0-3) Basophils (%) (Auto) 1 % (0-3) Neutrophils # (Auto) 3.7 x10^3/uL (1.8-7.7) Lymphocytes # (Auto) 1.8 x10^3/uL (1.0-4.8) Monocytes # (Auto) 0.8 x10^3/uL (0.0-1.1) Eosinophils # (Auto) 0.2 x10^3/uL (0.0-0.7) Basophils # (Auto) 0.0 x10^3/uL (0.0-0.2) Sodium Level 140 mmol/L (136-145) Potassium Level 4.1 mmol/L (3.5-5.1) Chloride Level 103 mmol/L (98-107) Carbon Dioxide Level 29 mmol/L (21-32) Anion Gap 8 (6-14) Blood Urea Nitrogen 9 mg/dL (8-26) Creatinine 0.9 mg/dL (0.7-1.3) Estimated GFR (Cockcroft-Gault) 112.5 BUN/Creatinine Ratio 10 (6-20) Glucose Level 88 mg/dL (70-99) Calcium Level 8.7 mg/dL (8.5-10.1) Magnesium Level 2.1 mg/dL (1.8-2.4) Total Bilirubin 0.2 mg/dL (0.2-1.0) Aspartate Amino Transf (AST/SGOT) 20 U/L (15-37) Alanine Aminotransferase (ALT/SGPT) 37 U/L (16-63) Alkaline Phosphatase 90 U/L (46-116) Troponin I Quantitative < 0.017 ng/mL (0.000-0.055) < 0.017 ng/mL (0.000-0.055) < 0.017 ng/mL (0.000-0.055) Total Protein 7.6 g/dL (6.4-8.2) Albumin 3.4 g/dL (3.4-5.0) Albumin/Globulin Ratio 0.8 (1.0-1.7) Images Images Chest x-ray with no acute changes Assessment/Plan Assessment/Plan 1. Chest pain. Patient has had recurrent chest pain for several weeks as noted above. His EKG shows no acute ischemic changes. Troponins have been normal. Chest x-ray shows no acute processes. As noted above the patient was previously seen in the emergency room on 02/25/20 for similar complaints with a suboptimal chest CTA scan showing no evidence of a large PE. Also of note he reports his sister dying of a myocardial infarction at age 40. In the setting of his history of hypertension, hyperlipidemia and a family history of early coronary disease we will proceed with a treadmill nuclear stress test. 2. Hypertension. Under better control. Continuing to monitor. 3. Hyperlipidemia. Will start a statin. Thank you for allowing us to participate in the care of your patient. CHAPARRO KWAN MD Mar 11, 2020 15:19
[2020-03-11 19:00] VITALS: BP 131/90
[2020-03-11] MEDS ORDERED: OMEP40CA7 PO (19:50)
[2020-03-11] MEDS ORDERED: ATORVASTATIN CALCIUM 20 MG TABLET PO SCH (21:00)
--- NOTE | 2020-03-11 22:41 | RAD ---
Exam: Ultrasound scrotum Indication: Testicular mass Technique: Real-time grayscale and color Doppler images of the scrotum were obtained by the [facility] nibbler operator. Comparisons: None FINDINGS: Right testicle measures 4.3 x 2.9 x 2.1 cm. Left testicle measures 3.9 x 2.8 x 2.1 cm. Basilar flow identified within the testicles bilaterally. At the upper pole of the left testicle likely within the epididymis there is a 3.4 cm simple cyst. IMPRESSION: 1. Large cyst at the left epididymis measuring up to 3.4 cm. Given increase in size, recommend nonem ergent consultation with urology. 2. No testicular torsion. Electronically signed by: Ayaan Lowe MD (03/11/2020 10:39 PM) [facility]
[2020-03-11 23:00] VITALS: BP 168/96
[2020-03-12 03:00] VITALS: BP 151/93
[2020-03-12 04:15] LABS: BASO % 0 % (0-3); EOS # 0.2 x10^3/uL (0.0-0.7); EOS % 3 % (0-3); HEMATOCRIT 44.6 % (39.0-53.0); HEMOGLOBIN 15.1 g/dL (13.0-17.5); LYMPH # 2.2 x10^3/uL (1.0-4.8); LYMPH % 32 % (24-48); MEAN CORPUSCULAR HEMOGLOBIN 27 pg (25-35); MEAN CORPUSCULAR HGB CONC 34 g/dL (31-37); MEAN CORPUSCULAR VOLUME 79 fL (79-100); MONO # 0.6 x10^3/uL (0.0-1.1); MONO % 8 % (0-9); NEUT # 3.8 x10^3/uL (1.8-7.7); NEUT % 56 % (31-73); PLATELET COUNT 227 x10^3/uL (140-400); RED BLOOD COUNT 5.66 x10^6/uL (4.30-5.70); RED CELL DISTRIBUTION WIDTH 17.2 % (11.5-14.5); WHITE BLOOD COUNT 6.8 x10^3/uL (4.0-11.0)
[2020-03-12 04:17] LABS: CALCIUM 8.6 mg/dL (8.5-10.1); CREATININE 0.9 mg/dL (0.7-1.3); GFR 112.5; POTASSIUM 3.9 mmol/L (3.5-5.1)
[2020-03-12 07:00] VITALS: BP 153/104
[2020-03-12] MEDS: LOSARTAN POTASSIUM 25 MG TABLET. PO SCH (08:48)
[2020-03-12] MEDS: HEPARIN 25,000UTS/250ML PREMIX 250 ML IV PRN ×2 (08:55→16:05)
--- NOTE | 2020-03-12 10:05 | EKG ---
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
[2020-03-12] MEDS ORDERED: PERFLUTREN PROTEIN-A MICROSPHR 0.22 MG/ML 3 ML VIAL. IV ONE ×2 (10:33→11:00)
[2020-03-12] MEDS ORDERED: ATOR20TA58 PO (10:36)
[2020-03-12] MEDS ORDERED: LOSA25TA54 PO (10:36)
[2020-03-12 11:00] VITALS: BP 189/116
--- NOTE | 2020-03-12 11:14 | DS ---
DATE OF DISCHARGE: 03/12/2020 ADMISSION DIAGNOSES: Chest pain and incidental finding of epididymal cyst. DISCHARGE DIAGNOSIS: Atypical chest pain. HOSPITAL COURSE: The patient is a pleasant 39-year-old male who presented with chest pain. He was admitted. We consulted Cardiology. We did serial enzymes, serial EKGs. We did discover he had a scrotal cyst. Basically, today he is going for a treadmill stress test. I saw him this morning, he is at his baseline. I doubt this is coronary artery disease. If the treadmill is negative, we plan to discharge and have him see [facility]. DISPOSITION: Home. ACTIVITY: As tolerated. DIET: Low sodium. MEDICATIONS: Please see the MRAD. TOTAL TIME: 34 minutes. LUCIANO KINNEY DO DR: KURTIS/renetta JOB#: [id number] / [id number]
--- NOTE | 2020-03-12 11:26 | PDOC ---
[employer] PROGRESS NOTE Date of Service DOS: DATE: 03/12/20 TIME: 11:23 Chief Complaint Chief Complaint Chest Pain History of Present Illness History of Present Illness Patient is a 39-year-old obese -[place] male presents to the ER for evaluation of intermittent chest pain x1 week. He reports associated lightheadedness and bilateral upper extremity numbness. He was seen in [facility] ER on 02/25/2020 for similar symptoms. He was given the option to be admitted for cardiac evaluation, per patient chose to be discharged instead. He returned to the ER last night due to recurrence of symptoms. Chest. EKG unremarkable for acute process. Due to significant risk factors of morbid obesity and family history of coronary artery disease, will admit patient for further medical management. 03/12/2020 -Patient seen and examined. -Guillermo RN. Guillermo pillowcase turner. -Patient receiving echo and treadmill stress test today -Chart reviewed Vitals/I&O Vitals/I&O: Vital Signs Date Time Temp Pulse Resp B/P (MAP) Pulse Ox O2 Delivery O2 Flow Rate FiO2 03/12/20 11:00 98.0 109 18 189/116 (140) 91 Room Air 98.0 I & O 03/11/20 03/11/20 03/12/20 15:00 23:00 07:00 Intake Total 320 ml 0 ml Output Total 450 ml Balance 320 ml -450 ml Physical Exam General: Alert, Oriented X3, Cooperative, mild distress Heart: Regular rate Abdomen: Normal bowel sounds Extremities: No clubbing, No cyanosis, No edema Skin: No rashes Labs Labs: Laboratory Tests Test 03/11/20 18:50 03/12/20 02:45 Heparin Anti-Xa Act, Unfractionated < 0.10 IU/mL (0.30-0.70) 0.30 IU/mL (0.30-0.70) White Blood Count 6.8 x10^3/uL (4.0-11.0) Red Blood Count 5.66 x10^6/uL (4.30-5.70) Hemoglobin 15.1 g/dL (13.0-17.5) Hematocrit 44.6 % (39.0-53.0) Mean Corpuscular Volume 79 fL (79-100) Mean Corpuscular Hemoglobin 27 pg (25-35) Mean Corpuscular Hemoglobin Concent 34 g/dL (31-37) Red Cell Distribution Width 17.2 % (11.5-14.5) Platelet Count 227 x10^3/uL (140-400) Neutrophils (%) (Auto) 56 % (31-73) Lymphocytes (%) (Auto) 32 % (24-48) Monocytes (%) (Auto) 8 % (0-9) Eosinophils (%) (Auto) 3 % (0-3) Basophils (%) (Auto) 0 % (0-3) Neutrophils # (Auto) 3.8 x10^3/uL (1.8-7.7) Lymphocytes # (Auto) 2.2 x10^3/uL (1.0-4.8) Monocytes # (Auto) 0.6 x10^3/uL (0.0-1.1) Eosinophils # (Auto) 0.2 x10^3/uL (0.0-0.7) Basophils # (Auto) 0.0 x10^3/uL (0.0-0.2) Sodium Level 138 mmol/L (136-145) Potassium Level 3.9 mmol/L (3.5-5.1) Chloride Level 104 mmol/L (98-107) Carbon Dioxide Level 25 mmol/L (21-32) Anion Gap 9 (6-14) Blood Urea Nitrogen 10 mg/dL (8-26) Creatinine 0.9 mg/dL (0.7-1.3) Estimated GFR (Cockcroft-Gault) 112.5 Glucose Level 99 mg/dL (70-99) Calcium Level 8.6 mg/dL (8.5-10.1) Review of Systems Review of Systems: Denies fever. Denies SOB. Assessment and Plan Assessmemt and Plan Problems Medical Problems: (1) Chest pain Status: Acute Chest Pain 03/12/2020 Plan 1. Cardiac monitoring 2. Getting cardiac stress test today 3. Getting echocardiogram today 4. F/u with [facility] for epididymal cyst 4. Full code 5. DVT prophylaxis 6. Home meds 7. If cardiac stress test normal, probable d/c today Comment Review of Relevant I have reviewed the following items fortunato (where applicable) has been applied. Medications: Current Medications Medications (Trade) Dose Ordered Sig/Loreta Route PRN Reason Start Time Stop Time Status Last Admin Dose Admin Atorvastatin Calcium (Lipitor) 20 mg QHS PO 03/11/20 21:00 03/11/20 20:25 Justifications for Admission Other Justification LUCIANO KINNEY III DO Mar 12, 2020 11:26
--- NOTE | 2020-03-12 12:16 | CARD ---
MR#: [id number] Date of Study: 03/12/2020 Ordering Physician: SONNY RODRÍGUEZ, Referring Physician: SONNY RODRÍGUEZ, Tech: Violette Cerna PATI APPROVED REPORT EXAM: Two-dimensional and M-mode echocardiogram with Doppler and color Doppler. Other Information Quality : Technically LimitedHR: 96bpm Rhythm : NSR INDICATION Dyspnea Chest Pain Echo Enhancing Agent Indication: Endocardial border delineation Agent/Amount Used: Optison 3mL RISK FACTORS Hypertension Obesity 2D DIMENSIONS RVDd3.4 (2.9-3.5cm)Left Atrium(2D)3.1 (1.6-4.0cm) IVSd1.2 (0.7-1.1cm)Aortic Root(2D)3.3 (2.0-3.7cm) LVDd4.8 (3.9-5.9cm)LVOT Diameter2.2 (1.8-2.4cm) PWd1.2 (0.7-1.1cm)LVDs3.2 (2.5-4.0cm) FS (%) 33.3 %SV67.0 ml Aortic Valve AoV Peak Gabe.127.4cm/sAoV VTI22.7cm AO Peak GR.6.5mmHgLVOT Peak Gabe.88.5cm/s AO Mean GR.3mmHgAVA (VMAX)2.65cm2 Mitral Valve MV E Utodtusb98.2cm/sMV DECEL KQQO529xe MV A Yislmdou48.5cm/sE/A Ratio0.9 LEFT VENTRICLE The left ventricle is normal size. There is mild concentric left ventricular hypertrophy. The left ve ntricular systolic function is normal and the ejection fraction is within normal range. Left ventricu lar ejection fraction is 55 to 60% There is normal LV segmental wall motion. The left ventricular salas stolic function and filling is normal for age. RIGHT VENTRICLE The right ventricle is normal size. There is normal right ventricular wall thickness. The right ventr icular systolic function is normal. ATRIA The left atrium size is normal. The right atrium size is normal. The interatrial septum is intact wit h no evidence for an atrial septal defect or patent foramen ovale as noted on 2-D or Doppler imaging. AORTIC VALVE The aortic valve is normal in structure and function. Doppler and Color Flow revealed no significant aortic regurgitation. There is no significant aortic valvular stenosis. MITRAL VALVE The mitral valve is normal in structure and function. There is no evidence of mitral valve prolapse. There is no mitral valve stenosis. Doppler and Color Flow revealed trace mitral valve regurgitation. TRICUSPID VALVE The tricuspid valve is normal in structure and function. Doppler and Color Flow revealed no tricuspid valve regurgitation noted. There is no tricuspid valve stenosis. PULMONIC VALVE The pulmonary valve is normal in structure and function. Doppler and Color Flow revealed no pulmonic valvular regurgitation. GREAT VESSELS The aortic root is normal in size. The ascending aorta is normal in size. The IVC is normal in size a nd collapses >50% with inspiration. PERICARDIAL EFFUSION There is no evidence of significant pericardial effusion. Critical Notification Critical Value: No <Conclusion> The left ventricle is normal size. The left ventricular systolic function is normal and the ejection fraction is within normal range. Left ventricular ejection fraction is 55 to 60% There is normal LV segmental wall motion. There is mild concentric left ventricular hypertrophy. Doppler and Color Flow revealed no significant aortic regurgitation. There is no significant aortic valvular stenosis. Doppler and Color Flow revealed trace mitral valve regurgitation. Doppler and Color Flow revealed no tricuspid valve regurgitation noted. Signed by : Derrek Perez MD Electronically Approved : 03/12/2020 12:16:42
--- NOTE | 2020-03-12 13:18 | RAD ---
MR#: [id number] Date of Study: 03/12/2020 Ordering Physician: CHAPARRO PEREZ, Referring Physician: MICHAEL MYRICK Tech: VIVI Maza, ARRT (R) (N) APPROVED REPORT Test Type: Exercise Stress Nurse/Tech: Chai Long RN Test Indications: chest pain Cardiac History: HTN, smoker Medications: See Electronic Medical Record Medical History: See Electronic Medical Record Resting ECG: SR Resting Heart Rate: 85 bpm Resting Blood Pressure: 179/97mmHg Pretest Chest Pain: None Nurse/Tech Notes lungs CTA Consent: The procedure was explained to the patient in lay terms. Informed consent was witnessed. Cruz eout was entered into [employer]. History and Stress Test performed by RT Jahaira (R) (N) Stress Symptoms Dyspnea POST EXERCISE Reason for Termination: Reached target heart rate Target HR: 152 Max HR: 172 bpm 96% of Maximum Predicted HR: 179 bpm Exercise duration: 6:17 min:sec, 2 Stage Exercise capacity: 7METs Max Blood Pressure: 179/97mmHg Blood Pressure response to exercise: Normal blood pressure response during stress. Heart Rate response to exercise: normal response Chest Pain: No. Arrhythmia: No. ST Change: No. INTERPRETATION Stress EKG Conclusion: The patient's resting EKG showed a sinus rhythm with nonspecific ST-T wave nikunj nges. The stress EKG shows no significant changes from baseline. No EKG evidence of stress-induced ischemia. Imaging Protocol IMAGE PROTOCOL: Stress Tc-99m/rest Tc-99m 2 days Rest: Stress: Viability: Radiopharm.Tc99m Sestamibi Fint71dIp Img Date 03/12/2020 Inj-Img [id number]. Stress Admin Site: IV - Left AntecubitalAdministrator: RT Sylvie (R)(N) STRESS DATA End Diast. Vol.111.0mlAv. Heart Rate93.0bpm End Syst. Vol.34.0mlCO Index BSA7.2L/min Myocardial Ccnf775.0gEject. Pkejcccl10.0% Stress Rates Pk. Fill Rate2.79EDV/secLVtime Pk. Fill 71.03msec Pk. Empty Rate3.41ESV/secLVtime Pk. Vvjpr692.70msec /3 Pk. Fill2.06EDV/sec Stress Scores Regional WT0.00Summed WT18.00 Regional WM0.00Summed WM1.00 LV Perfusion The stress scans showed no significant defects. Wall Motion Left ventricular ejection fraction is normal at 69%. LV Perf. Quant 17 Seg. SSS0.00 Stress Defect Extent (% LAD)0.00Rest Defect Extent (% LAD)Rev. Defect Extent (% LAD) Stress Defect Extent (% LCX) 0.00Rest Defect Extent (% LCX)Rev. Defect Extent (% LCX) Stress Defect Extent (% RCA)0.00Rest Defect Extent (% RCA)Rev. Defect Extent (% RCA) Stress Defect Extent (% JONATHAN)0.00Rest Defect Extent (% JONATHAN)Rev. Defect Extent (% JONATHAN) Conclusion 1. Good exercise tolerance with the patient walking for 6 minutes and 17 seconds on a Juan C protocol. 2. No reported chest pain with exertion. 3. No EKG evidence of stress-induced ischemia or arrhythmias. 4. Nuclear imaging shows normal stress scans. No evidence of ischemia or infarct is present. 5. Left ventricular ejection fraction is normal at 69%. 6. Low risk treadmill nuclear stress test. Signed by : Chaparro Perez MD Electronically Approved : 03/12/2020 13:18:33
[2020-03-12 15:00] VITALS: BP 208/127
[2020-03-12] MEDS ORDERED: FUROSEMIDE 40 MG/4 ML VIAL. IVP ONE (15:30)
[2020-03-12 19:00] VITALS: BP 145/91
--- NOTE | 2020-03-12 20:05 | NUR ---
DISCHARGE NOTE: ROSALES PORTER [address] [place] [address] Discharge instructions and discharge home medications reviewed with Patient and a copy given. All questions have been answered and understanding verbalized. The following instructions and handouts were given: cardiac diet. Follow up with PCP in 1 week. Call Cardiologists office to schedule follow up. Discontinued lines and drains: 20 gauge L AC IV removed. Patient discharged to home with self care via private vehicle (awaiting arrival). All belongings present, placed in green belongings bag.
--- NOTE | 2020-03-13 15:57 | EKG ---
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
--- NOTE | 2020-03-15 12:38 | NUR ---
Heparin Na+ IV started at 13:04 on 03/11---end time 03/12/20 at 08:55 Heparin Na+ IV started at 08:55 on 03/12/20--end time 20:35 on 03/12/20
== END 2020-03-12 20:30 | disposition home or self-care (01) ==
LOC: ER 02:12 → ED HOLD 04:06 → 5 NORTH 13:53
PROVIDERS: ADMIT Family Medicine; ATTEND Family Medicine
DX: R07.89 Other chest pain (principal); I10 Essential (primary) hypertension; G47.30 Sleep apnea, unspecified; E66.9 Obesity, unspecified; E78.5 Hyperlipidemia, unspecified; L72.9 Follicular cyst of the skin and subcutaneous tissue, unspecified; N50.3 Cyst of epididymis; K21.9 Gastro-esophageal reflux disease without esophagitis; Z79.82 Long term (current) use of aspirin; Z68.42 Body mass index [BMI] 45.0-49.9, adult
CPT/HCPCS: 36415; 71045; 76870; 78452; 80048; 80053; 80061; 83735; 84484; 85025; 85520; 93005; 93017; 96365; 96366; 96375; 96376; 99285; A9500; C8929; G0378; J1644; J1940; Q9956; G0379

== ENCOUNTER 2020-03-16 03:02 | Emergency (ER) | payer OTHER ==
[~2020-03-16] VITALS: Ht 172.7 cm; Wt 136.4 kg
[~2020-03-16 03:02] MED LIST: ATOR20TA58 PO; LOSA25TA54 PO; OMEP40CA7 PO
[2020-03-16 03:25] LABS: BASO % 1 % (0-3); EOS # 0.2 x10^3/uL (0.0-0.7); EOS % 3 % (0-3); HEMATOCRIT 42.9 % (39.0-53.0); HEMOGLOBIN 14.3 g/dL (13.0-17.5); LYMPH # 1.8 x10^3/uL (1.0-4.8); LYMPH % 27 % (24-48); MEAN CORPUSCULAR HEMOGLOBIN 26 pg (25-35); MEAN CORPUSCULAR HGB CONC 33 g/dL (31-37); MEAN CORPUSCULAR VOLUME 78 fL (79-100); MONO # 0.7 x10^3/uL (0.0-1.1); MONO % 11 % (0-9); NEUT # 3.9 x10^3/uL (1.8-7.7); NEUT % 58 % (31-73); PLATELET COUNT 211 x10^3/uL (140-400); RED CELL DISTRIBUTION WIDTH 16.8 % (11.5-14.5); WHITE BLOOD COUNT 6.7 x10^3/uL (4.0-11.0)
[2020-03-16 03:31] LABS: CREATININE 1.1 mg/dL (0.7-1.3); GFR 89.3; POTASSIUM 4.2 mmol/L (3.5-5.1)
[2020-03-16 03:37] LABS: ALBUMIN 3.6 g/dL (3.4-5.0); ALBUMIN/GLOBULIN RATIO 0.9 (1.0-1.7); MAGNESIUM 2.1 mg/dL (1.8-2.4); TOTAL BILIRUBIN 0.2 mg/dL (0.2-1.0); TOTAL PROTEIN 7.8 g/dL (6.4-8.2)
--- NOTE | 2020-03-16 03:48 | RAD ---
XR CHEST 1V Clinical Indication: Reason: chest pain Comparison: AP chest March 11, 2020. Findings: The cardiomediastinal silhouette is normal. Lungs are clear. There is no pneumothorax. No pleural eff usion is appreciated. No acute bone abnormality. IMPRESSION: No acute cardiopulmonary process. Electronically signed by: Jus Winter MD (03/16/2020 3:45 AM) [facility]
[2020-03-16] MEDS ORDERED: IV NORMAL SALINE 1000ML BAG 1,000 ML IV SCH (04:00)
--- NOTE | 2020-03-16 04:13 | PHYS DOC ---
Past Medical History Past Medical History: High Cholesterol, Hypertension, Other Additional Past Medical Histor: SLEEP APNEA, "LUMP ON GROIN POSSIBLY CA" Past Surgical History: No Surgical History Smoking Status: Never Smoker Alcohol Use: None Adult General Chief Complaint Chief Complaint: HYPERTENSION HPI HPI Patient is a 39 year old male with a known past medical history of hypertension presents emergency department complaining of new onset of chest pain. Of note this is the patient's third visit to the emergency department this month with a similar complaints. Patient was seen by myself approximately 1 week ago with similar complaints of hypertension and chest pain was admitted to the hospital underwent cardiac evaluation and stress test which was normal. Patient states that over the last 24 hours noted intermittent left anterior chest pain with bilateral upper and lower extremity tingling. States that over the last 3 hours has increased in severity and has been associated with sensation of shortness of breath. Denies any dizziness or lightheadedness. Patient was recently placed on antihypertensive medication has been compliant. Review of Systems Review of Systems Constitutional: Denies fever or chills [] Eyes: Denies change in visual acuity, redness, or eye pain [] HENT: Denies nasal congestion or sore throat [] Respiratory: Denies cough Cardiovascular: No additional information not addressed in HPI [] GI: Denies abdominal pain, nausea, vomiting, bloody stools or diarrhea [] : Denies dysuria or hematuria [] Musculoskeletal: Denies back pain or joint pain [] Integument: Denies rash or skin lesions [] Neurologic: Denies headache, focal weakness or sensory changes [] Endocrine: Denies polyuria or polydipsia [] All other systems were reviewed and found to be within normal limits, except as documented in this note. Current Medications Current Medications Current Medications Medications (Trade) Dose Ordered Sig/Loreta Start Time Stop Time Status Last Admin Dose Admin Lorazepam (Ativan Inj) 0.5 mg 1X ONCE 03/16/20 04:00 03/16/20 04:01 DC 03/16/20 03:44 0.5 MG Sodium Chloride 1,000 ml @ 1,000 mls/hr Q1H 03/16/20 04:00 03/16/20 04:59 03/16/20 03:42 1,000 MLS/HR Allergies Allergies Allergies Coded Allergies Type Severity Reaction Last Updated Verified No Known Drug Allergies 02/25/20 No Physical Exam Physical Exam Constitutional: Well developed, well nourished, no acute distress, non-toxic appearance. [] HENT: Normocephalic, atraumatic, bilateral external ears normal, oropharynx moist, no oral exudates, nose normal. [] Eyes: PERRLA, EOMI, conjunctiva normal, no discharge. [] Neck: Normal range of motion, no tenderness, supple, no stridor. [] Cardiovascular:Heart rate regular rhythm, no murmur [] Lungs & Thorax: Bilateral breath sounds clear to auscultation [] Abdomen: Bowel sounds normal, soft, no tenderness, no masses, no pulsatile masses. [] Skin: Warm, dry, no erythema, no rash. [] Back: No tenderness, no CVA tenderness. [] Extremities: No tenderness, no cyanosis, no clubbing, ROM intact, no edema. [] Neurologic: Alert and oriented X 3, normal motor function, normal sensory function, no focal deficits noted. [] Psychologic: Affect normal, judgement normal, mood normal. [] Current Patient Data Vital Signs Vital Signs Date Time Temp Pulse Resp B/P (MAP) Pulse Ox O2 Delivery O2 Flow Rate FiO2 03/16/20 03:05 98.6 94 20 181/94 (123) 98 Room Air 98.6 Lab Values Laboratory Tests Test 03/16/20 03:10 White Blood Count 6.7 x10^3/uL (4.0-11.0) Red Blood Count 5.50 x10^6/uL (4.30-5.70) Hemoglobin 14.3 g/dL (13.0-17.5) Hematocrit 42.9 % (39.0-53.0) Mean Corpuscular Volume 78 fL (79-100) L Mean Corpuscular Hemoglobin 26 pg (25-35) Mean Corpuscular Hemoglobin Concent 33 g/dL (31-37) Red Cell Distribution Width 16.8 % (11.5-14.5) H Platelet Count 211 x10^3/uL (140-400) Neutrophils (%) (Auto) 58 % (31-73) Lymphocytes (%) (Auto) 27 % (24-48) Monocytes (%) (Auto) 11 % (0-9) H Eosinophils (%) (Auto) 3 % (0-3) Basophils (%) (Auto) 1 % (0-3) Neutrophils # (Auto) 3.9 x10^3/uL (1.8-7.7) Lymphocytes # (Auto) 1.8 x10^3/uL (1.0-4.8) Monocytes # (Auto) 0.7 x10^3/uL (0.0-1.1) Eosinophils # (Auto) 0.2 x10^3/uL (0.0-0.7) Basophils # (Auto) 0.0 x10^3/uL (0.0-0.2) Sodium Level 138 mmol/L (136-145) Potassium Level 4.2 mmol/L (3.5-5.1) Chloride Level 103 mmol/L (98-107) Carbon Dioxide Level 25 mmol/L (21-32) Anion Gap 10 (6-14) Blood Urea Nitrogen 16 mg/dL (8-26) Creatinine 1.1 mg/dL (0.7-1.3) Estimated GFR (Cockcroft-Gault) 89.3 BUN/Creatinine Ratio 15 (6-20) Glucose Level 102 mg/dL (70-99) H Calcium Level 9.0 mg/dL (8.5-10.1) Magnesium Level 2.1 mg/dL (1.8-2.4) Total Bilirubin 0.2 mg/dL (0.2-1.0) Aspartate Amino Transferase (AST) 29 U/L (15-37) Alanine Aminotransferase (ALT) 41 U/L (16-63) Alkaline Phosphatase 88 U/L (46-116) Troponin I Quantitative < 0.017 ng/mL (0.000-0.055) Total Protein 7.8 g/dL (6.4-8.2) Albumin 3.6 g/dL (3.4-5.0) Albumin/Globulin Ratio 0.9 (1.0-1.7) L Laboratory Tests 03/16/20 03:10 Laboratory Tests 03/16/20 03:10 EKG EKG [] Radiology/Procedures Radiology/Procedures [] Course & Med Decision Making Course & Med Decision Making Pertinent Labs and Imaging studies reviewed. (See chart for details) 39-year-old male returning with elevated blood pressure and chest pain. Patient had a recent stress test that was essentially normal the likelihood of patient undergoing a ACS currently is extremely low. At this time I do suspect that the patient has had anxiety. Because the patient is having elevated blood pressure will obtain work-up to make sure there is no evidence of hypertensive emergency. Alyce Disclaimer Dragon Disclaimer This electronic medical record was generated, in whole or in part, using a voice recognition dictation system. Departure Departure Impression: Primary Impression: Chest pain Disposition: 01 DC HOME SELF CARE/HOMELESS Condition: GOOD Referrals: ELVIRA BEAR MD Patient Instructions: Chest Pain (Nonspecific) Additional Instructions: EMERGENCY DEPARTMENT GENERAL DISCHARGE INSTRUCTIONS Thank you for coming to [facility] Emergency Department (ED) today and trusting us with you care. We trust that you had a positive experience in our Emergency Department. If you wish to speak to the department management, you may call the Director at [phone]. YOUR FOLLOW UP INSTRUCTIONS ARE FOLLOWS: 1. Do you have a private Doctor? If you do not have a private doctor, please ask for a resource list of physicians or clinics that may be able to assist you with follo w up care. 2. The Emergency Physicain has interpreted your x-rays. The X-Ray specialist will also review them. If there is a change in the findings, you will be notified in 48 hours when at all possible. 3. A lab test or culture has been done, your results will be reviewed and you will be notified if you need a change in treatment. ADDITIONAL INSTRUCTIONS AND INFORMATION: 1. Your care today has been supervised by a physician who is specially trained in emergency care. Many problems require more than one evaluation for a complete diagnosis and treatment. We recommend that you schedule your follow up appointment as recommended to ensure complete treatment of you illness or injury. If you are unable to obtain follow up care and continue to have a problem, or if your condition worsens, we recommend that you return to the ED. 2. We are not able to safely determine your condition over the phone nor are we able to give sound medical advice over the phone. For these safety reasons, if you call for medical advice we will ask you to come to the ED for further evaluation. 3. If you have any questions regarding these discharge instructions please call the ED at [phone]. SAFETY INFORMATION: In the interest of safety, wellness, and injury prevention; we encourage you to wear your sealbelt, if you smoke; quite smoking, and we encourage family to use a pro tective helmet for bicycling and other sporting events that present an increased risk for head injury. IF YOUR SYMPTOMS WORSEN OR NEW SYMPTOMS DEVELOP, OR YOU HAVE CONCERNS ABOUT YOUR CONDITION; OR IF YOUR CONDITION WORSENS WHILE YOU ARE WAITING FOR YOUR FOLLOW UP APPOINTMENT; EITHER CONTACT YOUR PRIMARY CARE DOCTOR, THE PHYSICIAN WHOSE NAME AND NUMBER YOU WERE GIVEN, OR RETURN TO THE ED IMMEDIATELY. RAUDEL ARIZMENDI MD Mar 16, 2020 04:13
[2020-03-16 04:30] VITALS: BP 159/79
--- NOTE | 2020-03-16 05:51 | EKG ---
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
== END 2020-03-16 04:40 | disposition home or self-care (01) ==
LOC: ER 03:02
DX: R07.89 Other chest pain (principal); R06.02 Shortness of breath; R20.2 Paresthesia of skin; E78.00 Pure hypercholesterolemia, unspecified; I10 Essential (primary) hypertension; Z98.890 Other specified postprocedural states
CPT/HCPCS: 36415; 71045; 80053; 83735; 84484; 85025; 93005; 96361; 96374; 99285; J2060; J7030

== ENCOUNTER 2020-08-21 19:23 | Emergency (ER) | payer OTHER ==
[~2020-08-21] VITALS: Ht 172.7 cm; Wt 131.0 kg
[2020-08-21 19:54] LABS: BASO # 0.1 x10^3/uL (0.0-0.2); BASO % 1 % (0-3); EOS # 0.2 x10^3/uL (0.0-0.7); EOS % 2 % (0-3); HEMOGLOBIN 14.3 g/dL (13.0-17.5); LYMPH # 1.8 x10^3/uL (1.0-4.8); LYMPH % 24 % (24-48); MEAN CORPUSCULAR HEMOGLOBIN 26 pg (25-35); MEAN CORPUSCULAR HGB CONC 33 g/dL (31-37); MEAN CORPUSCULAR VOLUME 78 fL (79-100); MONO # 0.5 x10^3/uL (0.0-1.1); MONO % 7 % (0-9); NEUT # 4.8 x10^3/uL (1.8-7.7); NEUT % 66 % (31-73); PLATELET COUNT 230 x10^3/uL (140-400); RED BLOOD COUNT 5.54 x10^6/uL (4.30-5.70); RED CELL DISTRIBUTION WIDTH 17.7 % (11.5-14.5); WHITE BLOOD COUNT 7.3 x10^3/uL (4.0-11.0)
[2020-08-21 20:05] LABS: CALCIUM 8.3 mg/dL (8.5-10.1); CREATININE 1.2 mg/dL (0.7-1.3); GFR 80.3; POTASSIUM 3.8 mmol/L (3.5-5.1)
--- NOTE | 2020-08-21 21:02 | EKG ---
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
--- NOTE | 2020-08-21 22:42 | ED.ADGEN ---
Past Medical History Past Medical History: High Cholesterol, Hypertension, Other Additional Past Medical Histor: SLEEP APNEA, "LUMP ON GROIN POSSIBLY CA" Past Surgical History: No Surgical History Smoking Status: Never Smoker Alcohol Use: None General Adult EDM: Chief Complaint: CHEST PAIN HPI: HPI: Patient is a 40-year-old male past medical history of hypertension who presents to the emergency room complaining of left-sided chest aching with tingling sensation down his left arm. He has been having intermittent chest pains for the last 8 months. He states he has never had tingling into his arm which made him come in today. He initially was seen when he first started having chest pain in February and had a stress test and work-up that was normal. He did not follow-up with cardiology as planned. He states that the pain came on while he was working today. He states that comes on whenever it really feels like it. Nothing seems to make it better or worse. He denies any cough, URI symptoms, shortness of breath, dizziness, diaphoresis. Review of Systems: Review of Systems: Complete ROS is negative unless otherwise documented in HPI Allergies: Allergies: Allergies Coded Allergies Type Severity Reaction Last Updated Verified No Known Drug Allergies 02/25/20 No Physical Exam: PE: General: Awake, alert, NAD. Well Nourished, well hydrated. Cooperative HEENT: Atraumatic, EOMI, PERRL, airway patent, moist oral mucosa Neck: Supple, trachea midline Respiratory: CTA bilaterally, normal effort, no wheezing/crackles CV: RRR, no murmur, cap refill <2 GI: Soft, nondistended, nontender, no masses MSK: No obvious deformities Skin: Warm, dry, intact Neuro: A&O x3, speech NL, sensory and motor grossly intact, no focal deficits Psych: Normal affect, normal mood, not suicidal or homicidal Current Patient Data: Labs: Laboratory Tests Test 08/21/20 19:30 08/21/20 21:55 White Blood Count 7.3 x10^3/uL (4.0-11.0) Red Blood Count 5.54 x10^6/uL (4.30-5.70) Hemoglobin 14.3 g/dL (13.0-17.5) Hematocrit 43.0 % (39.0-53.0) Mean Corpuscular Volume 78 fL (79-100) L Mean Corpuscular Hemoglobin 26 pg (25-35) Mean Corpuscular Hemoglobin Concent 33 g/dL (31-37) Red Cell Distribution Width 17.7 % (11.5-14.5) H Platelet Count 230 x10^3/uL (140-400) Neutrophils (%) (Auto) 66 % (31-73) Lymphocytes (%) (Auto) 24 % (24-48) Monocytes (%) (Auto) 7 % (0-9) Eosinophils (%) (Auto) 2 % (0-3) Basophils (%) (Auto) 1 % (0-3) Neutrophils # (Auto) 4.8 x10^3/uL (1.8-7.7) Lymphocytes # (Auto) 1.8 x10^3/uL (1.0-4.8) Monocytes # (Auto) 0.5 x10^3/uL (0.0-1.1) Eosinophils # (Auto) 0.2 x10^3/uL (0.0-0.7) Basophils # (Auto) 0.1 x10^3/uL (0.0-0.2) Sodium Level 139 mmol/L (136-145) Potassium Level 3.8 mmol/L (3.5-5.1) Chloride Level 101 mmol/L (98-107) Carbon Dioxide Level 29 mmol/L (21-32) Anion Gap 9 (6-14) Blood Urea Nitrogen 16 mg/dL (8-26) Creatinine 1.2 mg/dL (0.7-1.3) Estimated GFR (Cockcroft-Gault) 80.3 Glucose Level 110 mg/dL (70-99) H Calcium Level 8.3 mg/dL (8.5-10.1) L Troponin I Quantitative < 0.017 ng/mL (0.000-0.055) < 0.017 ng/mL (0.000-0.055) XK-Fbx-Q-Type Natriuretic Peptide 66 pg/mL (0-124) Laboratory Tests 08/21/20 19:30 Laboratory Tests 08/21/20 19:30 Vital Signs: Vital Signs Date Time Temp Pulse Resp B/P (MAP) Pulse Ox O2 Delivery O2 Flow Rate FiO2 08/21/20 19:35 98.2 89 23 190/86 (123) 98 Room Air 98.2 EKG: EKG: [] Heart Score: C/O Chest Pain: Yes HEART Score for Chest Pain: HEART Score for Chest Pain Response (Comments) Value History Moderately Suspicious 1 ECG Normal 0 Age < 45 0 Risk Factors 1 or 2 Risk Factors 1 Troponin < Normal Limit 0 Total 2 Risk Factors: Risk Factors: DM, Current or recent (<one month) smoker, HTN, HLP, family history of CAD, obesity. Risk Scores: Score 0 - 3: 2.5% MACE over next 6 weeks - Discharge Home Score 4 - 6: 20.3% MACE over next 6 weeks - Admit for Clinical Observation Score 7 - 10: 72.7% MACE over next 6 weeks - Early Invasive Strategies Radiology/Procedures: Radiology/Procedures: [] Course & Med Decision Making: Course & Med Decision Making Pertinent Labs and Imaging studies reviewed. (See chart for details) Patient is a 40 year-old male who presents to the Emergency Room complaining of chest pain. History is significant for hypertension. At this time, given patient's risk factors and story there is concern for possible cardiac pathology. EKG was ordered and shows normal sinus rhythm. At this time there is no signs of STEMI, pericarditis, or unstable arrthymia on EKG. Patient has received aspirin today. CBC, BMP, troponin, CXR were ordered to evaluate for causes of chest pain including ACS, anemia, electrolyte abnormalities that can lead to arrhythmias, PTX, pneumonia, pneumomediastinum. Patient does not have any abdominal tenderness that would suggest pancreaititis or cholecystitis and does not need an abdominal work up at this time. Patient's HEART score is 2 placing the patient at low risk. Delta troponin is negative. At this time patient is stable and will be discharged home. We will have him follow-up with cardiology. Patient's test results and vitals while in the ED were fully reviewed and discussed with the patient. Patient is stable and at this time does not need admission to the hospital. We have discussed strict return precautions and the importance of following up with their Primary Care Physician. Patient stated understanding and was given an opportunity to ask any questions. Patient is in agreement with plan. Alyce Disclaimer: Alyce Disclaimer: This electronic medical record was generated, in whole or in part, using a voice recognition dictation system. Departure Departure Impression: Primary Impression: Chest pain Disposition: HOME / SELF CARE / HOMELESS Condition: STABLE Referrals: NO PCP (PCP) SELAM STINSON MD Patient Instructions: Chest Pain (Nonspecific) TERRY YO MD Aug 21, 2020 22:42
[2020-08-21 22:57] VITALS: BP 189/79
--- NOTE | 2020-08-21 23:46 | RAD ---
EXAM: CHEST 1 VIEW History: Chest pain COMPARISON: None available. TECHNIQUE: Single portable radiograph of the chest FINDINGS: The cardiac silhouette is unremarkable. The lungs are clear bilaterally. The costophrenic sulci are clear and well demarcated. IMPRESSION: No radiographic evidence of an acute cardiopulmonary process. Electronically signed by: Daniel Zuniga MD (08/21/2020 11:44 PM) [id number]
--- NOTE | 2020-08-22 01:10 | EKG ---
[facility] [address] [place] [address] Test Date: 2020-08-21 Test Time: 20:04:47 Pat Name: ROSALES PORTER Department: Room: Gender: M Strap Buckler: : 1980 Requested By: TERRY YO Order Number: [id number] Reading MD: Ravinder Tapia Measurements Intervals [place] Rate: 84 P: 31 NC: 154 QRS: -8 QRSD: 94 T: -11 QT: 360 QTc: 429 Interpretive Statements SINUS RHYTHM LEFTWARD AXIS NON SPECIFIC T ABNORMALITY Electronically Signed On 08-22-2020 11:47:54 CDT by Ravinder Tapia
== END 2020-08-21 23:04 | disposition home or self-care (01) ==
LOC: ER 19:23
DX: R07.89 Other chest pain (principal); R20.2 Paresthesia of skin; E78.00 Pure hypercholesterolemia, unspecified; I10 Essential (primary) hypertension
CPT/HCPCS: 36415; 71045; 80048; 83880; 84484; 85025; 93005; 99285-25

== ENCOUNTER 2020-10-29 00:20 | Emergency (ER) | payer OTHER ==
[~2020-10-29] VITALS: Ht 172.7 cm; Wt 142.0 kg
[~2020-10-29 00:20] MED LIST changes: +LOSA-73 PO; +NITR0.4T24 SL
--- NOTE | 2020-10-29 00:48 | PHYS DOC ---
Past Medical History Past Medical History: High Cholesterol, Hypertension, Other Additional Past Medical Histor: SLEEP APNEA, "LUMP ON GROIN POSSIBLY CA" Past Surgical History: No Surgical History Smoking Status: Current Every Day Smoker Alcohol Use: None General Adult EDM: Chief Complaint: CHEST PAIN HPI: HPI: 40-year-old male presents to the emergency department complaining of chest pain for the past 5 days that feels like a pressure-like sensation with "several children sitting on my chest ". He denies any radiation of pain, states that the pain comes and goes, he has not tried anything for the pain at home. He notices symptoms started after he got the second Covid vaccine on Thursday morning. He also complains of feeling fatigued, lightheaded. The patient denies radiation of pain, sweating, shortness of air, nausea, vomiting, palpitations, cough, hemoptysis. The patient denies any history of blood clots in his legs or his lungs, he is currently being worked up for testicular cancer that is not diagnosed as of yet. He denies any testicular pain or abdominal pain today. Review of Systems: Review of Systems: ROS is otherwise negative except for what was mentioned in HPI. Heart Score: C/O Chest Pain: Yes HEART Score for Chest Pain: HEART Score for Chest Pain Response (Comments) Value History Moderately Suspicious 1 ECG Normal 0 Age < 45 0 Risk Factors 1 or 2 Risk Factors 1 Troponin < Normal Limit 0 Total 2 Allergies: Allergies: Allergies Coded Allergies Type Severity Reaction Last Updated Verified No Known Drug Allergies 02/25/20 No Physical Exam: PE: Constitutional: No acute distress, non-toxic appearance. Obese. HENT: Atraumatic, bilateral external ears normal, nose normal. Eyes: Conjunctiva normal, no discharge. Neck: Normal range of motion, supple, no stridor. Cardiovascular: Heart rate regular rhythm. 2+ radial pulses and equal Lungs & Thorax: No respiratory distress, symmetrical expansion. Chest wall: No reproducible chest wall tenderness to palpation, no lesions. Abdomen: Soft, no tenderness Skin: Warm, dry. Extremities: No tenderness, no cyanosis, ROM intact, no edema. Neurologic: Alert and oriented X 3, normal motor function, normal sensory function, no focal deficits noted. GCS 15. Psychologic: Affect normal, judgment normal, mood normal. Current Patient Data: Labs: Laboratory Tests Test 10/29/20 01:28 10/29/20 03:49 White Blood Count 5.9 x10^3/uL (4.0-11.0) Red Blood Count 5.58 x10^6/uL (4.30-5.70) Hemoglobin 14.8 g/dL (13.0-17.5) Hematocrit 43.6 % (39.0-53.0) Mean Corpuscular Volume 78 fL (79-100) Mean Corpuscular Hemoglobin 26 pg (25-35) Mean Corpuscular Hemoglobin Concent 34 g/dL (31-37) Red Cell Distribution Width 16.7 % (11.5-14.5) Platelet Count 215 x10^3/uL (140-400) Neutrophils (%) (Auto) 59 % (31-73) Lymphocytes (%) (Auto) 25 % (24-48) Monocytes (%) (Auto) 12 % (0-9) Eosinophils (%) (Auto) 4 % (0-3) Basophils (%) (Auto) 0 % (0-3) Neutrophils # (Auto) 3.4 x10^3/uL (1.8-7.7) Lymphocytes # (Auto) 1.5 x10^3/uL (1.0-4.8) Monocytes # (Auto) 0.7 x10^3/uL (0.0-1.1) Eosinophils # (Auto) 0.3 x10^3/uL (0.0-0.7) Basophils # (Auto) 0.0 x10^3/uL (0.0-0.2) Sodium Level 138 mmol/L (136-145) Potassium Level 3.8 mmol/L (3.5-5.1) Chloride Level 101 mmol/L (98-107) Carbon Dioxide Level 27 mmol/L (21-32) Anion Gap 10 (6-14) Blood Urea Nitrogen 11 mg/dL (8-26) Creatinine 1.0 mg/dL (0.7-1.3) Estimated GFR (Cockcroft-Gault) 99.2 Glucose Level 97 mg/dL (70-99) Calcium Level 8.9 mg/dL (8.5-10.1) Troponin I Quantitative < 0.017 ng/mL (0.000-0.055) < 0.017 ng/mL (0.000-0.055) IK-Fuv-P-Type Natriuretic Peptide 65 pg/mL (0-124) Vital Signs: Vital Signs Date Time Temp Pulse Resp B/P (MAP) Pulse Ox O2 Delivery O2 Flow Rate FiO2 10/29/20 00:58 91 18 151/92 (111) 97 Room Air 10/29/20 00:53 98.9 96 18 155/103 (120) 98 Room Air 98.9 EKG: EK: Normal sinus rhythm rate of 92, no ST-T wave changes, no ectopic beats, normal axis, normal [place], QRS, and QTc intervals. Impression: Normal EKG. interpreted by Boyd packer D.O. Radiology/Procedures: Radiology/Procedures: EXAMINATION: Chest radiograph. VIEWS: Single AP view of the chest COMPARISON: 08/24/2020 INDICATION:40 years, Male, pain. FINDINGS: Normal cardiomediastinal silhouette. No focal consolidation. No pleural effusion or pneumothorax. No acute osseous process. IMPRESSION: No acute cardiopulmonary process. Electronically signed by: Jonnie Hutchinson DO (10/29/2020 2:32 AM Course & Med Decision Making: Course & Med Decision Making PERC Rule for Pulmonary Embolism from [employer] on 10/29/2020 RESULT SUMMARY: 0 criteria No need for further workup, as <2% chance of PE. If no criteria are positive and clinicians pre-test probability is <15%, PERC Rule criteria are satisfied. INPUTS: Age ?50 > 0 = No HR ?100 > 0 = No O? sat on room air > 0 = No Unilateral leg swelling > 0 = No Hemoptysis > 0 = No Recent surgery or trauma > 0 = No Prior PE or DVT > 0 = No Hormone use > 0 = No Delta troponin is within normal limits, patient with heart score as above, PERC is negative. Patient was discharged with work note and will follow up with his primary care physician. My Orders - BOYD FINE DO Procedure Category Date Status Time Vital Signs Monitoring ER 10/29/20 Transmitted 00:53 Blood Pressure ER 10/29/20 Transmitted Monitoring 00:53 Cardiac Monitoring ER 10/29/20 Transmitted 00:53 Oxygen Delivery NORA 10/29/20 In Process Basic Metabolic Panel LAB 10/29/20 Complete 00:53 Cbc W Autod[employer] LAB 10/29/20 Complete 00:53 Portable Chest 1v RAD 10/29/20 Resulted 00:53 Aspirin Chewable PHA 10/29/20 Complete (Aspirin Chewable) 01:30 Troponin I Stat NORA 10/29/20 In Process 00:53 Nt-Pro Bnp LAB 10/29/20 Complete 00:53 Troponini LAB 10/29/20 Complete 00:53 Troponini LAB 10/29/20 Complete 03:53 Troponini LAB 10/29/20 Logged 06:53 Pulse Oximetry: NORA 10/29/20 In Process Standing Order 00:53 Iv Normal Saline PHA 10/29/20 Complete 1000ml Bag (Iv Sodium 01:30 Fentanyl Pf Vial PHA 10/29/20 Complete (Fentanyl 2ml Vial) 01:30 12 Lead Ekg EKG 10/29/20 Complete 03:36 12 Lead Ekg EKG 10/29/20 Complete 03:36 Departure Departure Impression: Primary Impression: Chest pain Disposition: HOME / SELF CARE / HOMELESS Condition: STABLE Referrals: NO PCP (PCP) Patient Instructions: Chest Pain (Nonspecific), [id number] Additional Instructions: You were seen in the emergency department for chest pain. Your exam and testing did not show any acute abnormality that warranted admission today but does not rule out underlying cardiovascular disease. You need to follow up with your primary doctor and/or cardiology for further evaluation. Return to the Emergency Department immediately, day or night, if you have worsening or continued chest pain, shortness of breath, nausea, sweating during chest pain, trouble breathing, chest pain with exertion (climbing stairs or walking for example), leg swelling or for any other concerns. BOYD FINE DO Oct 29, 2020 00:48
[2020-10-29] MEDS ORDERED: IV NORMAL SALINE 1000ML BAG 1,000 ML IV SCH (01:30)
[2020-10-29] MEDS ORDERED: ASPIRIN CHEWABLE 81 MG TABLET. PO ONE (01:30)
[2020-10-29] MEDS ORDERED: fentaNYL PF VIAL 100 MCG/2 ML VIAL IVP ONE (01:30)
[2020-10-29 01:42] LABS: BASO % 0 % (0-3); EOS # 0.3 x10^3/uL (0.0-0.7); EOS % 4 % (0-3); HEMATOCRIT 43.6 % (39.0-53.0); HEMOGLOBIN 14.8 g/dL (13.0-17.5); LYMPH # 1.5 x10^3/uL (1.0-4.8); LYMPH % 25 % (24-48); MEAN CORPUSCULAR HEMOGLOBIN 26 pg (25-35); MEAN CORPUSCULAR HGB CONC 34 g/dL (31-37); MEAN CORPUSCULAR VOLUME 78 fL (79-100); MONO # 0.7 x10^3/uL (0.0-1.1); MONO % 12 % (0-9); NEUT # 3.4 x10^3/uL (1.8-7.7); NEUT % 59 % (31-73); PLATELET COUNT 215 x10^3/uL (140-400); RED BLOOD COUNT 5.58 x10^6/uL (4.30-5.70); RED CELL DISTRIBUTION WIDTH 16.7 % (11.5-14.5); WHITE BLOOD COUNT 5.9 x10^3/uL (4.0-11.0)
[2020-10-29 01:51] LABS: CALCIUM 8.9 mg/dL (8.5-10.1); GFR 99.2; POTASSIUM 3.8 mmol/L (3.5-5.1)
--- NOTE | 2020-10-29 02:34 | RAD ---
EXAMINATION: Chest radiograph. VIEWS: Single AP view of the chest COMPARISON: 08/24/2020 INDICATION:40 years, Male, pain. FINDINGS: Normal cardiomediastinal silhouette. No focal consolidation. No pleural effusion or pneumothorax. No acute osseous process. IMPRESSION: No acute cardiopulmonary process. Electronically signed by: Jonnie Hutchinson DO (10/29/2020 2:32 AM) [facility]
--- NOTE | 2020-10-29 03:39 | EKG ---
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
--- NOTE | 2020-10-29 03:40 | EKG ---
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
[2020-10-29 04:12] VITALS: BP 167/81
--- NOTE | 2020-10-29 05:20 | EKG ---
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
== END 2020-10-29 04:42 | disposition home or self-care (01) ==
LOC: ER 00:20
DX: R07.89 Other chest pain (principal); R42 Dizziness and giddiness; R53.83 Other fatigue; I10 Essential (primary) hypertension; E78.00 Pure hypercholesterolemia, unspecified; F17.200 Nicotine dependence, unspecified, uncomplicated
CPT/HCPCS: 36415; 71045; 80048; 83880; 84484; 85025; 93005; 96361; 96374; 99285; J3010; J7030

== ENCOUNTER 2021-02-24 03:37 | Emergency (ER) | payer BC, OTHER ==
[~2021-02-24] VITALS: Ht 172.7 cm; Wt 120.0 kg
--- NOTE | 2021-02-24 03:56 | PHYS DOC ---
Past Medical History Past Medical History: High Cholesterol, Hypertension, Other Additional Past Medical Histor: SLEEP APNEA, "LUMP ON GROIN POSSIBLY CA" (MILY SHARP DO) Past Surgical History: No Surgical History (MILY SHARP DO) Smoking Status: Current Every Day Smoker Alcohol Use: None (MILY SHARP DO) General Adult EDM: Chief Complaint: CHEST PAIN HPI: HPI: 38-year-old AA male past medical history of hypertension, hyperlipidemia, obesity, sleep apnea and tobacco use, presents to the ED brought in by EMS with complaints of nonradiating, midsternal, dull chest pain that woke patient up around 3 AM and lasted for approximately an hour. It has persisted 30 minutes after patient took 1 sublingual nitro that was prescribed in March after patient was admitted for chest pain. Has never had a cardiac catheterization. Is not on any anticoagulants. States he had similar chest pain described as a dull ache, history at 11 AM that "hung around" until the evening. Reports associated numbness and tingling in the left arm and pain in his upper back and neck. Reports he ran out of his blood pressure medications. Has no primary care physician for routine care. Denies any tobacco use, cocaine or methamphetamine abuse. Was diagnosed with Covid on February 12 and has been taking Robitussin. States he was told in emergency department he might be having anxiety related chest pain. Does report stress and multiple friends who have recently in their 40s. Denies any caffeine or energy drinks. EMR reviewed and [facility] stress test, no cardiac cauterization. (MILY SHARP DO) Review of Systems: Review of Systems: Constitutional: Denies fever or chills. [] Eyes: Denies change in visual acuity. [] HENT: Denies nasal congestion or sore throat. [] Respiratory: Denies cough or shortness of breath. [] Cardiovascular: Denies syncope or edema. [] GI: Denies abdominal pain, nausea, vomiting, bloody stools or diarrhea. [] : Denies dysuria. [] Musculoskeletal: Denies back pain or joint pain. [] Integument: Denies rash. [] Neurologic: Denies headache, focal weakness or sensory changes. [] Endocrine: Denies polyuria or polydipsia. [] Lymphatic: Denies swollen glands. [] Psychiatric: Denies depression or anxiety. [] (ASHLEYMILY DO) Heart Score: C/O Chest Pain: Yes HEART Score for Chest Pain: HEART Score for Chest Pain Response (Comments) Value History Slighlty/Non-Suspicious 0 ECG Nonspecific Repolarizatio 1 Age < 45 0 Risk Factors >3 Risk Factors or Hx CAD 2 Troponin < Normal Limit 0 Total 3 Risk Factors: Risk Factors: DM, Current or recent (<one month) smoker, HTN, HLP, family history of CAD, obesity. Risk Scores: Score 0 - 3: 2.5% MACE over next 6 weeks - Discharge Home Score 4 - 6: 20.3% MACE over next 6 weeks - Admit for Clinical Observation Score 7 - 10: 72.7% MACE over next 6 weeks - Early Invasive Strategies (MILY SHARP DO) Allergies: Allergies: Allergies Coded Allergies Type Severity Reaction Last Updated Verified No Known Drug Allergies 02/25/20 No (ASHLEYMILY DO) Physical Exam: PE: Constitutional: Well developed, well nourished, no acute distress, non-toxic appearance, obese HENT: Normocephalic, atraumatic, Eyes: EOMI, conjunctiva normal, no discharge. Neck: Normal range of motion, supple, Cardiovascular: S1/2 present, regular rhythm Lungs & Thorax: Speaking in full sentences, bilateral equal chest rise, no tachypnea or increased work of breathing Abdomen: soft, no tenderness, Skin: Warm, dry, no erythema, no rash. [] Back: No tenderness, no CVA tenderness. [] Extremities: No tenderness, no cyanosis, no lower extremity edema Neurologic: Alert and oriented X 3, normal motor function, normal sensory function, no focal deficits noted. [] Psychologic: Affect normal, judgement normal, mood normal. [] (MILY SHARP DO) EKG: EKG: Sinus rhythm 68 bpm, left axis deviation, normal intervals, T wave inversion lead III, no ST elevation ST depression, no active chest pain, compared to 10/29/20 ekg with no new changes (MILY SHARP DO) Radiology/Procedures: Radiology/Procedures: IMAGING REPORT Signed PATIENT: ROSALES PORTER ACCOUNT: [id number] : 1980 LOCATION: ER AGE: 40 SEX: M EXAM STATUS: PRE ER ORD. PHYSICIAN: MILY SHARP DO REASON: cp PROCEDURE: PORTABLE CHEST 1V XR CHEST 1V History: Reason: cp / Spl. Instructions: / History: Comparison: October 29, 2020 Findings: No consolidation or pleural effusion. Normal heart size. No pneumothorax. Impression: 1. No acute cardiopulmonary process. Electronically signed by: Zia Granda DO (02/24/2021 4:39 AM) [facility] DICTATED and SIGNED BY: ZAI GRANDA DO DATE: 02/24/21 [id number] 0 Impression: 0 criteria No need for further workup, as <2% chance of PE. If no criteria are positive and clinicians pre-test probability is <15%, PERC Rule criteria are satisfied. (MILY SAHRP DO) Course & Med Decision Making: Course & Med Decision Making Pertinent Labs and Imaging studies reviewed. (See chart for details) Concern for atypical chest pain in a low risk patient. D-dimer within normal limits. PERC rule negative. First troponin within normal limits. Patient is pending second high-sensitivity troponin. Patient with uncontrolled, hypertension and medication noncompliance. Patient has been asymptomatic with no active chest pain in the emergency department. Due to shift change patient was signed out to oncoming physician Dr. Cleveland for further medical evaluation and disposition. (MILY SHARP DO) Course & Med Decision Making This patient was initially seen by Dr. Sharp. Please see her note for H&P and details of HPI. The patient is resting comfortably, manifested no evidence of distress. He has no chest pain at present. Serial troponin exams are done, the second troponin is lower than the first. I have discussed all of the findings, differential diagnosis and plan of care with him. He feels very comfortable to plan for discharge home. He has previously seen cardiology services here, I encouraged him to contact them this week and arrange for close follow-up. Strict return precautions are given. (MIKE CLEVELAND DO) Dragon Disclaimer: Dragon Disclaimer: This electronic medical record was generated, in whole or in part, using a voice recognition dictation system. (MILY SHARP DO) Departure Departure Impression: Primary Impression: Chest pain Disposition: HOME / SELF CARE / HOMELESS Condition: STABLE Referrals: NO PCP (PCP) CHAPARRO KWAN MD Patient Instructions: Chest Pain (Nonspecific) Additional Instructions: Return to the ER for more severe pain, shortness of breath, vomiting, dizziness, weakness or for any other concerns. Please contact Dr. Kwan and your primary care doctor for outpatient follow-up. MILY SHARP DO Feb 24, 2021 03:55 MIKE CLEEVLAND DO Feb 24, 2021 08:40
[2021-02-24 03:59] LABS: BASO % 1 % (0-3); EOS # 0.2 x10^3/uL (0.0-0.7); EOS % 3 % (0-3); HEMATOCRIT 42.2 % (39.0-53.0); HEMOGLOBIN 14.5 g/dL (13.0-17.5); LYMPH # 1.9 x10^3/uL (1.0-4.8); LYMPH % 28 % (24-48); MEAN CORPUSCULAR HEMOGLOBIN 27 pg (25-35); MEAN CORPUSCULAR HGB CONC 34 g/dL (31-37); MEAN CORPUSCULAR VOLUME 78 fL (79-100); MONO # 0.5 x10^3/uL (0.0-1.1); MONO % 7 % (0-9); NEUT # 4.3 x10^3/uL (1.8-7.7); NEUT % 61 % (31-73); PLATELET COUNT 207 x10^3/uL (140-400); RED CELL DISTRIBUTION WIDTH 15.6 % (11.5-14.5)
[2021-02-24 04:09] LABS: CALCIUM 8.5 mg/dL (8.5-10.1); GFR 99.2
[2021-02-24 04:15] LABS: ALBUMIN 3.3 g/dL (3.4-5.0); ALBUMIN/GLOBULIN RATIO 0.8 (1.0-1.7); MAGNESIUM 1.9 mg/dL (1.8-2.4); TOTAL BILIRUBIN 0.2 mg/dL (0.2-1.0); TOTAL PROTEIN 7.6 g/dL (6.4-8.2)
--- NOTE | 2021-02-24 04:41 | RAD ---
XR CHEST 1V History: Reason: cp / Spl. Instructions: / History: Comparison: October 29, 2020 Findings: No consolidation or pleural effusion. Normal heart size. No pneumothorax. Impression: 1. No acute cardiopulmonary process. Electronically signed by: Zia Granda DO (02/24/2021 4:39 AM) [facility] [place]
--- NOTE | 2021-02-24 05:52 | EKG ---
[facility] [address] [place] [address] Test Date: 2021-02-24 Test Time: 03:47:35 Pat Name: ROSALES PORTER Department: Room: Gender: M Pct: : 1980 Requested By: MILY SHARP Order Number: [id number] Reading MD: Measurements Intervals [place] Rate: 68 P: 23 MD: 166 QRS: -10 QRSD: 96 T: -2 QT: 396 QTc: 426 Interpretive Statements SINUS RHYTHM LEFTWARD AXIS QRS(T) CONTOUR ABNORMALITY CONSIDER ANTEROSEPTAL MYOCARDIAL DAMAGE POSSIBLY ABNORMAL ECG RI6.01 No previous ECG available for comparison
[2021-02-24 08:51] VITALS: BP 181/87
== END 2021-02-24 09:17 | disposition home or self-care (01) ==
LOC: ER 03:37
DX: R07.2 Precordial pain (principal); R20.0 Anesthesia of skin; M54.2 Cervicalgia; I10 Essential (primary) hypertension; E78.00 Pure hypercholesterolemia, unspecified; F17.200 Nicotine dependence, unspecified, uncomplicated
CPT/HCPCS: 36415; 71045; 80053; 83690; 83735; 84484; 85025; 85379; 93005; 99285-25